=== PATIENT | female | born 1935 | race Caucasian/White ===

== ENCOUNTER 2021-06-22 09:58 | Emergency (ER) | payer MEDICARE, OTHER, SELFPAY ==
[2021-06-22] VITALS (7 sets, daily range): BP systolic 118–136; BP diastolic 84–107; PULSE 87–124; RESP 14–18; TEMP 36.9; O2SAT 92–98; BMI 28.3
--- NOTE | 2021-06-22 10:15 | ECG_ITS ---
[facility] Test Date: 2021-06-22 Pat Name: Francia Azevedo Department: Room: Gender: Female Pumper Hand: : 1935 Requested By: Meseret Hussein Order Number: [id number] Samantha MD: Shilo Solis M.D. 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 [id number] vick
--- NOTE | 2021-06-22 10:15 | CT_ITS ---
WS: [id number] CT HEAD NONCONTRAST HISTORY: unable to walk TECHNIQUE: Contiguous axial imaging performed through the brain in 2.5 mm imaging. Bone and soft tiss ue windows. Sagittal and coronal reformats reviewed. All CT scans at [facility] use at ast one of these dose optimization techniques: automated exposure control; mA and/or kV adjustment pe r patient size (includes targeted exams where dose is matched to clinical indication); or iterative r econstruction. DLP: 764.06 mGy.cm COMPARISON: 05/08/2008 No acute intracranial hemorrhage, midline shift or mass effect. Moderate atrophy with severe chronic microvascular type ischemic changes in the white matter. Signifi cant progression of chronic ischemic disease since 2007. Ventricles: Mild dilatation of the ventricles and extra-axial spaces on the basis of central and per ipheral atrophy. Heavy calcification within the intracranial carotid arteries. Paranasal sinuses: As visualized are clear. Mastoid air cells: Well pneumatized. Calvarium and scalp: Skull is intact with no soft tissue edema or swelling. CT/CT head wo con* [id number] IMPRESSION: 1. No acute intracranial hemorrhage or edema. 2. Moderate progression of atrophy and chronic microvascular ischemic disease since 2007. No acute area of sulcal effacement.
--- NOTE | 2021-06-22 13:14 | PC.NURSE ---
PT ARRIVED TO ROOM; ASSUMED CARE AT 1314
--- NOTE | 2021-06-22 13:24 | W.ED.GENADLT ---
HPI - General Adult General: Chief complaint: ER Hold Stated complaint: UNABLE TO WALK Time Seen by Provider: 06/22/21 13:14 History of Present Illness: HPI narrative: 85yoF female with history of atrial fibrillation on anticoagulation, CHF, hypertension, diabetes who presents the emergency room with complaints of generalized weakness and fatigue with exertion x 2 days. Patient attempted to get up this morning however felt very lightheaded. Patient noticed that her legs are also swollen. Patient denies any chest pain, focal weakness, diplopia, slurring of speech, or any extremity weakness. Patient lives at home by herself and has her daughter visit her every other day. Onset:2 days Duration:ongoing Location:home Severity:moderate Review of Systems Narrative: Constitutional: No fever, no chills. +fatigue/generalized weakness HEENT: No vision changes CV: No chest pain, no palpitations PULM: no cough, +dyspnea. GI: No abdominal pain, no N/V/D. : No dysuria MSKEL: No muscle pain SKIN: +leg swelling NEURO: No headache, no focal weakness. HEME: No visible bruises PSYCH: Normal mood PFSH ED PFSH: Medical History Atrial fibrillation CAD (coronary artery disease) CHF (congestive heart failure), NYHA class III HTN (hypertension) Hypothyroidism Surgical History History of coronary artery stent placement Hx of hysterectomy 1993 Family History Grandmother Stroke Father Cancer Other CHF (congestive heart failure) Denies family history of Diabetes Social History Smoking and tobacco status: never smoked Alcohol intake: never Physical Exam Narrative: EXAM NARRATIVE: Head: Atraumatic Eyes: PERRL, conjunctiva without injection ENT: Mucous membrane moist NECK: Supple, ROM intact LUNGS: Coarse breath sounds throughout CV: Regular tachycardia ABDOMEN: Soft, nontender in all quadrants EXTREMITY: Normal ROM, 2+ pitting edema up to the knees SKIN:+bumps over the anterior shins b/l NEURO: Awake and alert, no focal motor deficits PSYCH: Normal mood and affect Course Vital Signs: Vital signs: Vital Signs Temperature 98.5 F 06/22/21 10:11 Pulse Rate 88 06/22/21 23:56 Respiratory Rate 18 06/22/21 23:56 Blood Pressure 120/85 06/22/21 23:00 Pulse Oximetry 94 06/22/21 23:56 MDM - General Adult MDM Narrative: Medical decision making narrative: Patient an 85-year-old female with history of atrial fibrillation on Eliquis, CHF, hypertension, diabetes who presents the emergency room with generalized weakness x2 days. Patient is unable to stand up due to fatigue and increased lightheadedness. On lab evaluation, patient is found to have a creatinine of 2.4 with unknown baseline. Patient also has a proBNP of 15,000, troponin 52, D-dimer of 1.9. Patient is currently on anticoagulation. Decision was made to defer CTA study at this time to elevated creatinine. At this time, I am unable to assess and if there is any vascular occlusion that could include neurogenic syncope. Patient received aspirin. EKG showing Afib at WO=137. Normal axis. No ST elevations/depressions to suggest coronary occlusion. Normal QRS, QT intervals. Given metoprolol 5mg, 500 cc of fluids for afib with RVR. We will plan on fluid restricting given generalized picture of CHF. UA positive for nitrate and bacteria. Will cover with ceftriaxone. Disposition: Admission Lab Data: Labs: Lab Results 06/22/21 06/22/21 06/22/21 Range/Units 14:12 14:12 14:12 WBC 6.0 (4.0-10.0) 10^3/ uL RBC 5.12 (4.1-5.3) 10^6/u L Hgb 15.7 H (11.5-15.3) g/dL Hct 49.4 H (37.0-47.0) % MCV 96.5 (81-99) fl MCH 30.7 (28.0-34.0) pg MCHC 31.8 (30.0-36.0) g/dL RDW 14.9 (12.1-15.1) % Plt Count 176 (130-400) 10^3/c mm MPV 11.4 H (7.4-10.4) fL Neut % (Auto) 54.6 % Lymph % (Auto) 24.9 % [place] % (Auto) 15.1 % Eos % (Auto) 3.6 % Baso % (Auto) 1.3 % Neut # (Auto) 3.29 (1.8-7.7) 10^3/u L Lymph # (Auto) 1.5 (0.8-4.8) 10^3/u L [place] # (Auto) 0.9 (0.2-0.9) 10^3/u L Eos # (Auto) 0.2 (0.0-0.8) 10^3/u L Baso # (Auto) 0.1 (0.0-0.1) 10^3/u L Nucleated RBC % (a uto) 0 % Nucleated RBCs # 0.0 /100WBC D-Dimer (0-0.59) ug/mIFE U Sodium 140 (136-145) mmol/L Potassium 4.3 (3.5-5.1) mmol/L Chloride 99 (98-107) mmol/L Carbon Dioxide 29 (22-29) mmol/L Anion Gap 16.3 (5-19) BUN 51 H (8-23) mg/dL Creatinine 2.4 H (0.5-0.9) mg/dL GFR Calculation Not Reportable Glucose 146 H (65-115) mg/dL Calculated Osmolal ity 306 H (285-295) mOsm/k g Calcium 9.5 (8.5-10.5) mg/dL Troponin T Gen 5 n g/L 52 H (0-10) ng/L C-Reactive Protein (0.0-4.9) mg/L NT-Pro-B Natriuret Pep (0-450) pg/mL Procalcitonin (0-0.5) ng/mL Urine Color (Yellow) Urine Appearance (CLEAR) Urine pH (5-7) Ur Specific Gravit y (1.005-1.030) Urine Protein (Negative) Urine Glucose (UA) (Normal) Urine Ketones (Negative) Urine Blood (Negative) Urine Nitrate (Negative) Urine Bilirubin (Negative) Prot Sulfosalicyli c Acd (Negative) Urine Urobilinogen (Negative) mg/dL Ur Leukocyte Mary ase (Negative) Urine RBC (0-2) /hpf Urine WBC (0-5) /hpf Ur Squamous Epith Cells (0-5) /hpf Ur Transition Epit h Cell /hpf Amorphous Sediment /hpf Urine Bacteria (NONE) /hpf 06/22/21 06/22/21 06/22/21 Range/Units 14:12 14:12 14:20 WBC (4.0-10.0) 10^3/ uL RBC (4.1-5.3) 10^6/u L Hgb (11.5-15.3) g/dL Hct (37.0-47.0) % MCV (81-99) fl MCH (28.0-34.0) pg MCHC (30.0-36.0) g/dL RDW (12.1-15.1) % Plt Count (130-400) 10^3/c mm MPV (7.4-10.4) fL Neut % (Auto) % Lymph % (Auto) % [place] % (Auto) % Eos % (Auto) % Baso % (Auto) % Neut # (Auto) (1.8-7.7) 10^3/u L Lymph # (Auto) (0.8-4.8) 10^3/u L [place] # (Auto) (0.2-0.9) 10^3/u L Eos # (Auto) (0.0-0.8) 10^3/u L Baso # (Auto) (0.0-0.1) 10^3/u L Nucleated RBC % (a uto) % Nucleated RBCs # /100WBC D-Dimer 1.99 H (0-0.59) ug/mIFE U Sodium (136-145) mmol/L Potassium (3.5-5.1) mmol/L Chloride (98-107) mmol/L Carbon Dioxide (22-29) mmol/L Anion Gap (5-19) BUN (8-23) mg/dL Creatinine (0.5-0.9) mg/dL GFR Calculation Glucose (65-115) mg/dL Calculated Osmolal ity (285-295) mOsm/k g Calcium (8.5-10.5) mg/dL Troponin T Gen 5 n g/L (0-10) ng/L C-Reactive Protein 2.1 (0.0-4.9) mg/L NT-Pro-B Natriuret Pep 71581 H (0-450) pg/mL Procalcitonin 0.09 (0-0.5) ng/mL Urine Color (Yellow) Urine Appearance (CLEAR) Urine pH (5-7) Ur Specific Gravit y (1.005-1.030) Urine Protein (Negative) Urine Glucose (UA) (Normal) Urine Ketones (Negative) Urine Blood (Negative) Urine Nitrate (Negative) Urine Bilirubin (Negative) Prot Sulfosalicyli c Acd (Negative) Urine Urobilinogen (Negative) mg/dL Ur Leukocyte Mary ase (Negative) Urine RBC (0-2) /hpf Urine WBC (0-5) /hpf Ur Squamous Epith Cells (0-5) /hpf Ur Transition Epit h Cell /hpf Amorphous Sediment /hpf Urine Bacteria (NONE) /hpf 06/22/21 Range/Units 14:51 WBC (4.0-10.0) 10^3/ uL RBC (4.1-5.3) 10^6/u L Hgb (11.5-15.3) g/dL Hct (37.0-47.0) % MCV (81-99) fl MCH (28.0-34.0) pg MCHC (30.0-36.0) g/dL RDW (12.1-15.1) % Plt Count (130-400) 10^3/c mm MPV (7.4-10.4) fL Neut % (Auto) % Lymph % (Auto) % [place] % (Auto) % Eos % (Auto) % Baso % (Auto) % Neut # (Auto) (1.8-7.7) 10^3/u L Lymph # (Auto) (0.8-4.8) 10^3/u L [place] # (Auto) (0.2-0.9) 10^3/u L Eos # (Auto) (0.0-0.8) 10^3/u L Baso # (Auto) (0.0-0.1) 10^3/u L Nucleated RBC % (a uto) % Nucleated RBCs # /100WBC D-Dimer (0-0.59) ug/mIFE U Sodium (136-145) mmol/L Potassium (3.5-5.1) mmol/L Chloride (98-107) mmol/L Carbon Dioxide (22-29) mmol/L Anion Gap (5-19) BUN (8-23) mg/dL Creatinine (0.5-0.9) mg/dL GFR Calculation Glucose (65-115) mg/dL Calculated Osmolal ity (285-295) mOsm/k g Calcium (8.5-10.5) mg/dL Troponin T Gen 5 n g/L (0-10) ng/L C-Reactive Protein (0.0-4.9) mg/L NT-Pro-B Natriuret Pep (0-450) pg/mL Procalcitonin (0-0.5) ng/mL Urine Color Yellow (Yellow) Urine Appearance Hazy A (CLEAR) Urine pH 8 H (5-7) Ur Specific Gravit y 1.005 (1.005-1.030) Urine Protein Trace (Negative) Urine Glucose (UA) Norm (Normal) Urine Ketones Negative (Negative) Urine Blood 3+ H (Negative) Urine Nitrate Positive H (Negative) Urine Bilirubin Neg (Negative) Prot Sulfosalicyli c Acd Positive (Negative) Urine Urobilinogen Norm (Negative) mg/dL Ur Leukocyte Mary ase 1+ H (Negative) Urine RBC 0-4 H (0-2) /hpf Urine WBC 5-10 H (0-5) /hpf Ur Squamous Epith Cells 5-10 H (0-5) /hpf Ur Transition Epit h Cell 0-4 /hpf Amorphous Sediment 1+ /hpf Urine Bacteria 4+ H (NONE) /hpf Imaging Data^: Other Imaging: Radiologist's impression: [address] [id number] ReportSigned Patient: Akanksha Azevedo #: [id number]: 5Acct#:[id number]/Sex: 85 / FADM Date: 06/22/21Loc: ERRoom/Bed:Attending Dr: Ordering Provider/Ordering MD: Meseret Hussein MD Date of Service: 06/22/21 Procedure(s): XR chest 1V portable [id number] Accession Number(s): [id number] Report Number: [id number] WS: [id number] Exam: XR chest 1V portable [id number] Date/Time of Exam: 06/22/2021 1:27 PM Reason For Exam: dyspnea, fatigue Comparison 04/01/2014. The heart is enlarged. There are bibasal pleural effusions. No acute infiltrates are seen. No pneumothorax. The mediastinum and bony thorax are unremarkable. XR/XR chest 1V portable [id number] IMPRESSION: 1. Cardiac enlargement with bibasal pleural effusions which most likely indicate some degree of congestive heart failure. Dictated By:Fryeigned By:Jeffery Rothman Date/Time:06/22/21 1431DD/ 1429 Discharge Plan Discharge Patient Disposition: Admitted As Inpatient Admit Provider: Sorin Higuera Clinical Impression: CHF exacerbation, Generalized weakness, Acute UTI, Elevated troponin, Atrial fibrillation and flutter Condition: Stable Coding Level of Care Code ED Cw Operator for Jia Valentin
--- NOTE | 2021-06-22 13:27 | XR_ITS ---
WS: [id number] Exam: XR chest 1V portable [id number] Date/Time of Exam: 06/22/2021 1:27 PM Reason For Exam: dyspnea, fatigue Comparison 04/01/2014. The heart is enlarged. There are bibasal pleural effusions. No acute infiltrates are seen. No pneumot horax. The mediastinum and bony thorax are unremarkable. XR/XR chest 1V portable [id number] IMPRESSION: 1. Cardiac enlargement with bibasal pleural effusions which most likely indicat e some degree of congestive heart failure.
--- NOTE | 2021-06-22 14:12 | PC.PHAR ---
pt brought in medication list pt and pts daughter verified medications-rx filled on 05/28/21 for spironolactone 12.5mg po qam-another rx filled on 06/13/21 25mg bid pt states she is still taking 12.5mg daily-pt states she is still taking lasix 20mg qam ext med history shows last filled on 03/24/21 30d/s-pts daughter states the pt isnt taking omeprazole rx filled on 05/31/21 30d/s states the medication didnt work
[2021-06-22 14:29] LABS: Basophils # 0.1 10^3/uL (0.0-0.1); Basophils % 1.3 %; Eosinophils # 0.2 10^3/uL (0.0-0.8); Eosinophils % 3.6 %; Hematocrit 49.4 % (37.0-47.0); Hemoglobin 15.7 g/dL (11.5-15.3); Lymphocytes # 1.5 10^3/uL (0.8-4.8); Lymphocytes % 24.9 %; Mean Corpuscular HGB Conc 31.8 g/dL (30.0-36.0); Mean Corpuscular Hemoglobin 30.7 pg (28.0-34.0); Mean Corpuscular Volume 96.5 fl (81-99); Mean Platelet Volume 11.4 fL (7.4-10.4); Monocytes # 0.9 10^3/uL (0.2-0.9); Monocytes % 15.1 %; Neutrophils # 3.29 10^3/uL (1.8-7.7); Neutrophils % 54.6 %; Nucleated Red Blood Cells % 0 %; Platelet Count 176 10^3/cmm (130-400); Red Blood Count 5.12 10^6/uL (4.1-5.3); Red Cell Distribution Width 14.9 % (12.1-15.1)
[2021-06-22 14:44] LABS: D Dimer 1.99 ug/mIFEU (0-0.59)
[2021-06-22] MEDS: metoprolol tartrate 1 mg/1 mL SDV 5 mL 5 MG IVP ×2 (14:52→16:42)
[2021-06-22 14:55] LABS: Blood Urea Nitrogen 51 mg/dL (8-23); Calcium 9.5 mg/dL (8.5-10.5); Carbon Dioxide 29 mmol/L (22-29); Chloride 99 mmol/L (98-107); Glucose 146 mg/dL (65-115); Osmolality Calculated 306 mOsm/kg (285-295); Sodium 140 mmol/L (136-145)
[2021-06-22 14:57] LABS: Troponin T (5th) Once 52 ng/L (0-10)
[2021-06-22 15:00] LABS: Anion Gap 16.3 (5-19); Potassium 4.3 mmol/L (3.5-5.1)
[2021-06-22 15:01] LABS: NT Pro B Type Natriuretic Pept 18467 pg/mL (0-450)
[2021-06-22 15:23] LABS: Bilirubin Urine Neg (Negative); Blood Urine 3+ (Negative); Glucose Urine UA Norm (Normal); Ketones Urine Negative (Negative); Nitrate Urine Positive (Negative); Protein Urine Trace (Negative); Specific Gravity, Urine 1.005 (1.005-1.030); Urine Appearance Hazy (CLEAR); Urine Color Yellow (Yellow); pH Urine 8 (5-7)
[2021-06-22 15:24] LABS: Add Urine Culture? Yes; Add Urine Microscopic? YES; Amorphous Sediment Urine 1+ /hpf; Bacteria Urine 4+ /hpf; Leukocyte Esterase Urine 1+ (Negative); RBC Urine 0-4 /hpf (0-2); Sulfosalicylic Acid Urine Positive (Negative); Transitional Epi Cells Urine 0-4 /hpf; Urobilinogen Urine Norm (Negative)
--- NOTE | 2021-06-22 15:28 | ECG_ITS ---
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 Measurements Intervals [place] Rate: 114 P: VT: QRS: 52 QRSD: 95 T: 0 QT: 331 QTc: 458 Interpretive Statements ATRIAL FIBRILLATION WITH RAPID VENTRICULAR RESPONSE LOW QRS VOLTAGE [QRS DEFLECTION < 0.5/1.0 mV IN LIMB/CHEST LEADS] POSSIBLE ANTERIOR MYOCARDIAL INFARCTION , PROBABLY OLD [30 ms Q WAVE IN V3/V4, OR R < 0.2 mV IN V4]javascript:perform('study_confirm'); Compared to ECG 06/22/2021 12:13:21 Sinus tachycardia no longer present First degree AV block no longer present Myocardial infarct finding still present Electronically Signed On 06-22-2021 18:03:16 CDT by Shilo Solis M.D. [id number]
--- NOTE | 2021-06-22 16:14 | PM.HP ---
Providers/Chief Complaint Primary Care Provider: Alonzo Serrano MD Chief Complaint: UNABLE TO WALK History of Present Illness Francia Azevedo is a 85 year old female who presented today with chief complaint of not been able to walk properly. Patient is stating that she lives alone she does carry history of preserved ejection fraction heart failure, she has not been vaccinated for COVID-19, there are family members who were tested positive for COVID-19 last few months and she thinks she had been exposed as well. She is denying fever, chest pain, shortness of breath, diarrhea. She is endorsing bilateral lower extremity swelling, weight gain, because of her swelling she has not been able to walk properly and that is why she was sent to the hospital. She uses walker for ambulation. She is compliant with her medications. Diagnosis in the ER revealed CHF exacerbation, JENNA, Covid PCR sent, we do not have rapid antigen swabs anymore, she is not requiring oxygen she is saturating well on room air, she was given full dose aspirin, ceftriaxone, metoprolol tartrate 50 mg p.o. for A. fib RVR current heart rate was fluctuating between 100-1 10, she was also given 10 mg of metoprolol IV push, abnormal UA but no signs of UTI Review of Systems Const: Reports: chills Eyes: Denies: change in vision ENMT: Denies: throat pain Card: Denies: chest pain Resp: Denies: dyspnea GI: Denies: abdominal pain : Denies: flank pain Musc: Denies: neck pain Skin/Breast: Reports: new lesions and lesions Neuro: Reports: weakness in extremities and difficulty walking; Denies: headache(s) Psych: Denies: anxiety Endo: Denies: polyuria Nitish/Lymph: Denies: easy bruising All/Imm: Denies: urticaria Medications/Allergies Home Medications Medication Instructions Recorded Confirmed Last Taken Type aspirin 81 mg tablet,delayed 81 mg PO QPM 04/18/21 06/22/21 06/21/21 History release calcium citrate 200 mg 1 tab PO BEDTIME 04/18/21 06/22/21 06/21/21 History calcium-vitamin D3 6.25 mcg (250 unit) tablet cholecalciferol (vitamin D3) 25 25 mcg PO BEDTIME 04/18/21 06/22/21 06/21/21 History mcg (1,000 unit) capsule furosemide 40 mg tablet 20 mg PO QAM 04/18/21 06/22/21 06/22/21 07:00 History gabapentin 300 mg capsule 300 mg PO QPM 04/18/21 06/22/21 06/21/21 History hydrocodone 10 mg-acetaminophen 1 tab PO Q8H PRN 04/18/21 06/22/21 06/22/21 07:00 History 325 mg tablet metoprolol succinate 100 mg 100 mg PO QAM 04/18/21 06/22/21 06/22/21 07:00 History tablet,extended release 24 hr nitroglycerin 0.4 mg sublingual 0.4 mg SUBLINGUAL Q5M PRN 04/18/21 06/22/21 Unknown History tablet simvastatin 40 mg tablet 40 mg PO BEDTIME 04/18/21 06/22/21 06/21/21 History spironolactone 25 mg tablet 12.5 mg PO QAM 04/18/21 06/22/21 06/22/21 07:00 History valsartan 320 mg tablet 320 mg PO QAM 04/18/21 06/22/21 06/22/21 07:00 History apixaban [Eliquis] 2.5 mg PO BID 06/22/21 06/22/21 06/22/21 07:00 History levothyroxine [Synthroid] 88 mcg PO QAM 06/22/21 06/22/21 06/22/21 07:00 History Allergies Allergy/AdvReac Type Severity Reaction Status Date / Time ciprofloxacin [From Cipro] Allergy Unknown Verified 06/22/21 14:12 diltiazem Allergy ALGY-Rash Verified 06/22/21 14:12 sulfamethoxazole Allergy Unknown Verified 06/22/21 14:12 [From Bactrim] trimethoprim [From Bactrim] Allergy Unknown Verified 06/22/21 14:12 PFSH Acute PFSH: Medical History Atrial fibrillation CAD (coronary artery disease) CHF (congestive heart failure), NYHA class III HTN (hypertension) Hypothyroidism Surgical History History of coronary artery stent placement Hx of hysterectomy 1994 Family History Grandmother Stroke Father Cancer Other CHF (congestive heart failure) Denies family history of Diabetes Social History Smoking and tobacco status: never smoked Alcohol intake: never Vitals/I&O/Wt Last Vital Signs Temp 98.5 F 06/22/21 10:11 Pulse 89 06/22/21 15:16 Resp 15 06/22/21 15:16 BP 118/98 06/22/21 15:16 Pulse Ox 96 06/22/21 15:16 Weight last 48 hrs Weight 63.503 kg Physical Exam Narrative: EXAM NARRATIVE: Very pleasant cooperative Sudanese female S1-S2 with signs of CHF exacerbation Bilateral lower extremity edema extending up to her thighs Cellulitis with pustules left leg EOMI, PERRLA Bilateral breast without active wheezing or crackles Saturating well on room air Appropriate mood and affect Abdomen soft nontender bowel sounds present No joint swelling No neurological deficit Data : 06/22/21 14:12 06/22/21 14:12 A&P Assessment and plan (1) CHF exacerbation: Status: Acute (2) Generalized weakness: Status: Acute (3) Elevated troponin: Status: Acute (4) Atrial fibrillation and flutter: Status: Acute (5) CHF (congestive heart failure), NYHA class III: Status: Acute Qualifiers: Congestive heart failure type: unspecified Qualified Code(s): I50.9 - Heart failure, unspecified (6) JENNA (acute kidney injury): Status: Acute Additional A&P Information Acute preserved ejection fraction exacerbation of heart failure No active murmur, no active chest pain First troponin 52, getting serial troponin EKG, EKG without specific ischemic or infarctive changes I would use Bumex IV and stop her p.o. Lasix for now Most likely etiology is tachyarrhythmia A. fib with acute RVR Required metoprolol IV push currently heart rate 100 110 Can use Cardizem drip if heart rates stays above 110 She is hypertensive Generalized weakness and leg swelling She was not able to walk because of bilateral lower extremity swelling I will request PT evaluation, She does not have active neurological deficits or strokelike findings Left leg cellulitis Does not have any purulent drainage I would use ceftriaxone for now for strep coverage She was given ceftriaxone in the ER for concern of UTI however she is denying any symptoms Acute on chronic kidney disease Cardiorenal anticipating improvement with diuresis No active signs of UTI Plan discussed with the daughter, also discussed goals of care, she is DNR/DNI Cardiac diet DVT prophylaxis not indicated at home she takes Eliquis 2.5 mg twice a day which I would continue Covid PCR sent Attestations Medical Necessity Statement*: Anticipating stay in the hospital across more more than 2 midnights Time Spent in Patient Care: Greater than 35 minutes Coding Level of Care Code Acute School Caf[employer] Cook for g Fwd Diagnoses CHF exacerbation I50.9 Generalized weakness R53.1 Elevated troponin R77.8 Atrial fibrillation and flutter I48.91; I48.92 CHF (congestive heart failure), NYHA class III I50.9 Congestive heart failure type: unspecified JENNA (acute kidney injury) N17.9
[2021-06-22] MEDS: cefTRIAXone 1,000 MG in lidocaine 1% 2.1 ML 2.1 MG IM (16:29)
[2021-06-22] MEDS: aspirin 325 mg Tablet PO (16:29)
[2021-06-22] MEDS: metoprolol tartrate 50 mg Tablet PO (16:42)
[2021-06-22 16:55] LABS: C Reactive Protein 2.1 mg/L (0.0-4.9)
[2021-06-22 17:02] LABS: Procalcitonin 0.09 ng/mL (0-0.5)
--- NOTE | 2021-06-22 17:28 | USR_ITS ---
PROCEDURE INFORMATION: Exam: US Duplex Lower Extremity Veins, Bilateral Exam date and time: 06/22/2021 5:28 PM Age: 85 years old Clinical indication: Pain; Leg, upper; Bilateral; Additional info: High d-dimer, leg swelling TECHNIQUE: Imaging protocol: Real-time duplex ultrasound of the extremities with 2-D stephenson scale, color Doppler flow and spectral waveform analysis with image documentation. Complete exam focused on the bilateral lower extremity veins. COMPARISON: No relevant prior studies available. FINDINGS: Right deep veins: Unremarkable. The common femoral, femoral, proximal profunda femoral and popliteal veins are patent without thrombus. Normal Doppler waveforms. Normal compressibility and/or augmentation response. Right superficial veins: Saphenofemoral junction is patent without thrombus. Left deep veins: Unremarkable. The common femoral, femoral, proximal profunda femoral and popliteal veins are patent without thrombus. Normal Doppler waveforms. Normal compressibility and/or augmentation response. Left superficial veins: Saphenofemoral junction is patent without thrombus. Soft tissues: Moderate subcutaneous edema in the lower extremities. US/CV venous duplex [facility] [id number] IMPRESSION: 1. Negative for deep venous thrombosis. 2. Moderate subcutaneous edema in the lower extremities.
[2021-06-22 17:35] LABS: Troponin 5 2HR 46.65 ng/L (0-10)
[2021-06-22 17:39] LABS: Troponin 5 2HR Delta -5.35 ABS# (0-10)
[2021-06-22] MEDS: apixaban 5 mg Tablet 2.5 MG PO (18:12)
--- NOTE | 2021-06-22 21:00 | PC.NURSE ---
linen wet with urine. pericare, new diaper, new linen, extra blankets and settled in to sleep
[2021-06-22 21:06] LABS: Troponin 5 6HR 48.13 ng/L (0-10)
[2021-06-22] MEDS: cholecalciferol (vitamin D3) 1,000 unit Tablet 1000 UNIT PO (23:21)
[2021-06-23 04:32] LABS: Basophils # 0.1 10^3/uL (0.0-0.1); Eosinophils # 0.4 10^3/uL (0.0-0.8); Eosinophils % 6.4 %; Hematocrit 42.7 % (37.0-47.0); Hemoglobin 13.5 g/dL (11.5-15.3); Lymphocytes # 1.4 10^3/uL (0.8-4.8); Lymphocytes % 24.7 %; Mean Corpuscular HGB Conc 31.6 g/dL (30.0-36.0); Mean Corpuscular Hemoglobin 30.5 pg (28.0-34.0); Mean Corpuscular Volume 96.6 fl (81-99); Mean Platelet Volume 11.2 fL (7.4-10.4); Monocytes # 0.7 10^3/uL (0.2-0.9); Monocytes % 12.7 %; Neutrophils # 3.15 10^3/uL (1.8-7.7); Neutrophils % 54.9 %; Nucleated Red Blood Cells % 0 %; Platelet Count 152 10^3/cmm (130-400); Red Blood Count 4.42 10^6/uL (4.1-5.3); Red Cell Distribution Width 15.1 % (12.1-15.1); White Blood Count 5.8 10^3/uL (4.0-10.0)
[2021-06-23 05:27] LABS: Blood Urea Nitrogen 47 mg/dL (8-23); Calcium 8.8 mg/dL (8.5-10.5); Carbon Dioxide 27 mmol/L (22-29); Chloride 100 mmol/L (98-107); Glucose 110 mg/dL (65-115); Osmolality Calculated 299 mOsm/kg (285-295); Sodium 138 mmol/L (136-145)
[2021-06-23 05:46] LABS: Anion Gap 15.2 (5-19); Potassium 4.2 mmol/L (3.5-5.1)
[2021-06-23] MEDS: metoprolol succinate ER (24 HR) 100 mg Tablet PO (05:50)
[2021-06-23] MEDS: levothyroxine 88 mcg Tablet PO (05:50)
[2021-06-23] MEDS: dexamethasone 4 mg Tablet 6 MG PO (10:49)
[2021-06-23] MEDS: apixaban 5 mg Tablet 2.5 MG PO (10:50)
[2021-06-23] MEDS: bumetanide 1 mg Tablet PO (10:53)
[2021-06-23 13:13] VITALS: PULSE 113; RESP 18; O2SAT 94
--- NOTE | 2021-06-23 13:47 | PM.PN ---
Subjective Subjective: Interval history: Patient was seen and examined in the ER, patient was endorsing feeling the same however her leg swelling has not improved, she was saturating well on room air she had 1 big bowel movement in the ER not noting chest pain or shortness of breath, she has stayed afebrile Vitals/I&O/Wt Last Vital Signs Temp 98.5 F 06/22/21 10:11 Pulse 113 H 06/23/21 13:13 Resp 18 06/23/21 13:13 BP 120/85 06/22/21 23:00 Pulse Ox 94 06/23/21 13:13 06/22/21 06/23/21 06/23/21 22:59 06:59 14:59 Intake Total 2.1 / 2.1 Balance 2.1 / 2.1 Weight last 48 hrs Weight 63.503 kg Physical Exam Narrative: EXAM NARRATIVE: Very pleasant cooperative female S1, S2 no murmur Clinically mild signs of CHF exacerbation with bilateral lower extremity edema Left leg cellulitis no acute worsening No vascular compromise Appropriate mood and affect EOMI, PERRLA no neurological deficits No audible stridor or wheezing No crackles or wheezing Data : 06/23/21 04:12 06/23/21 04:12 Micro: Microbiology 06/22/21 14:51 Urine Culture - Preliminary Urine,Clean Catch Gram Negative Rods A&P Assessment and plan (1) CHF exacerbation: Status: Acute (2) JENNA (acute kidney injury): Status: Acute (3) Generalized weakness: Status: Acute (4) Atrial fibrillation and flutter: Status: Acute (5) Hypothyroidism: Status: Acute (6) Cellulitis: Status: Acute Additional A&P Information Acute CHF exacerbation I would increase her Bumex dose to 2 mg daily Saturating well on room air Waiting on echo today Negative delta troponin EKG without ischemic or infarctive changes Acute kidney injury secondary to cardiorenal: Improved with diuresis Generalized weakness Rule out Covid, appears secondary to CHF exacerbation A. fib without RVR: Heart rate improved Continue Eliquis Cellulitis: She is currently being treated with ceftriaxone for nonpurulent left leg cellulitis, will be switched to doxycycline DNR/DNI Cardiac diet DVT prophylaxis currently on Eliquis Attestations Medical Necessity Statement*: Anticipating discharge after her Covid results Time Spent in Patient Care: less than 15 minutes Coding Level of Care Code Acute Broadcast Traffic Coordinator for Chg Fwd Diagnoses CHF exacerbation I50.9 JENNA (acute kidney injury) N17.9 Generalized weakness R53.1 Atrial fibrillation and flutter I48.91; I48.92 Hypothyroidism E03.9 Cellulitis L03.90
[2021-06-23 14:28] VITALS: BP 131/86; PULSE 113; RESP 18; O2SAT 98
--- NOTE | 2021-06-23 14:47 | PC.NURSE ---
pt decided she did not want to admitted, left AMA
[2021-06-23 22:28] LABS: Quest SARS-CoV-2 RNA NOT DETECTED (NOT DETECTED)
--- NOTE | 2021-06-25 08:12 | PC.NURSE ---
Patient contacted, notified of negative COVID test results.
== END 2021-06-23 14:47 | disposition left against medical advice (07) ==
LOC: ER 17:47 → ER IP 06-23 05:48
PROVIDERS: Emergency Provider Emergency Medicine; PCP Family Medicine; Visit Provider Internal Medicine
DX: N39.0 Urinary tract infection, site not specified (principal); I11.0 Hypertensive heart disease with heart failure; I50.9 Heart failure, unspecified; I48.91 Unspecified atrial fibrillation; I48.92 Unspecified atrial flutter; M79.605 Pain in left leg; M79.604 Pain in right leg; R77.8 Other specified abnormalities of plasma proteins; E03.9 Hypothyroidism, unspecified; E11.9 Type 2 diabetes mellitus without complications; I25.10 Atherosclerotic heart disease of native coronary artery without angina pectoris; Z79.01 Long term (current) use of anticoagulants; Z95.5 Presence of coronary angioplasty implant and graft
CPT/HCPCS: 36415; 70450; 71045; 80048; 81001; 83880; 84145; 84484; 85025; 85378; 86140; 87077; 87086; 87186; 87635; 93005; 93970; 96372; 99284; J0696; J3490; J8540

== ENCOUNTER 2021-07-26 14:40 | Inpatient (IN) | payer MEDICARE, OTHER, SELFPAY ==
[2021-07-26] VITALS (7 sets, daily range): BP systolic 114–158; BP diastolic 76–99; PULSE 93–131; RESP 16–22; TEMP 36.4–37.1; O2SAT 92–99; BMI 23.8; BMI 19.7
--- NOTE | 2021-07-26 15:33 | XR_ITS ---
WS: [id number] Exam: XR chest 1V portable [id number] Date/Time of Exam: 07/26/2021 3:33 PM Reason For Exam: AMS Comparison 06/22/2021. There is cardiac enlargement with bibasal pleural effusions. There is mild pulmonary vascular congest ion. The lungs are fully inflated. The mediastinum is not widened. Bony structures are intact. XR/XR chest 1V portable [id number] IMPRESSION: 1. Cardiac enlargement with increased pulmonary vascularity and bibasal pleural effusions suggesting CHF.
--- NOTE | 2021-07-26 15:33 | CTR_ITS ---
PROCEDURE INFORMATION: Exam: CT Head Without Contrast Exam date and time: 07/26/2021 3:33 PM Age: 85 years old Clinical indication: Altered mental status/memory loss; Additional info: AMS TECHNIQUE: Imaging protocol: Computed tomography of the head without contrast. Radiation optimization: All CT scans at this facility use at least one of these dose optimization techniques: automated exposure control; mA and/or kV adjustment per patient size (includes targeted exams where dose is matched to clinical indication); or iterative reconstruction. COMPARISON: CT head wo con* [id number] 06/22/2021 12:19 PM RADIATION DOSE METRICS: Total DLP (mGy-cm): 1493.16 FINDINGS: Brain: Please note there is extensive streak artifact at the base of the skull which limits fine parenchymal evaluation in this region. No evidence of intracranial hemorrhage. Moderate diffuse cerebral atrophy and sequela of chronic small vessel ischemic disease. Cerebral ventricles: No ventriculomegaly. Paranasal sinuses: Visualized sinuses are unremarkable. No fluid levels. Mastoid air cells: Visualized mastoid air cells are well aerated. Bones/joints: Unremarkable. No acute fracture. Soft tissues: Unremarkable. CT/CT head wo con* [id number] IMPRESSION: 1. No acute intracranial abnormality. 2. Moderate diffuse cerebral atrophy and sequela of chronic small vessel ischemic disease. Radiation Dose CTDIVOL = (mGy): DLP = 1493.16 (mGy-cm)
--- NOTE | 2021-07-26 15:35 | ECG_ITS ---
[facility] Test Date: 2021-07-26 Pat Name: Francia Azevedo Department: Room: Gender: Female Hvac Technician Residential: : 1935 Requested By: Demetrio Quinonez Order Number: [id number] Samantha MD: Brie Quinteros M.D. Measurements Intervals Douglas Rate: P: GA: QRS: QRSD: T: QT: QTc: Interpretive Statements NO FURTHER INTERPRETATION POSSIBLE ATYPICAL ECG WARNING: DATA QUALITY MAY AFFECT INTERPRETATION Compared to ECG 06/22/2021 15:09:32 Atrial fibrillation no longer present Myocardial infarct finding no longer present Electronically Signed On 07-27-2021 6:57:50 CDT by Brie Quinteros M.D. [email or web address]
--- NOTE | 2021-07-26 15:36 | ED_ITS ---
HPI - Altered Mental Status General: Chief Complaint: Altered Mental Status Stated Complaint: HTN, BLE EDEMA; DELIRIUM, AFIB Time Seen by Provider: 07/26/21 15:32 History of Present Illness: HPI narrative: Patient is a 5-year-old female with past medical history of JENNA CHF A. fib congestive heart failure class III hypothyroidism hypertension cardiac artery disease. She is here accompanied by her daughter who is her primary decating machine operator. States for the last 3 weeks she has had increasing decrease in mental status and sharpness decrease in appetite and increased leg swelling. She was hospitalized at the end of May for JENNA and leg swelling as well. She had been able to do her ADLs until about 3 weeks ago. Was seen by her primary care provider who suggested they come to the emergency department for evaluation. At her baseline she is talkative awake generally oriented. Denies any recent fevers chills chest pain nausea vomiting diarrhea altered mental status headache recent trauma or rash Review of Systems General: Reports: 10 or more systems reviewed and unremarkable except in HPI and below PFSH ED PFSH: Medical History Atrial fibrillation CAD (coronary artery disease) CHF (congestive heart failure), NYHA class III HTN (hypertension) Hypothyroidism Surgical History History of coronary artery stent placement Hx of hysterectomy 1993 Family History Grandmother Stroke Father Cancer Other CHF (congestive heart failure) Denies family history of Diabetes Social History Smoking and tobacco status: never smoked Alcohol intake: never Physical Exam Const: COMMON NORMALS: no acute distress, average body habitus and patient or iented x3 GENERAL APPEARANCE: cooperative, comfortable, well kempt, well developed and frail appearing; not in distress, not anxious, not combative, not disheveled, not lethargic, not ill appearing and does not appear older than stated age ORIENTATION/CONSCIOUSNESS: Yes awake, Yes oriented to person, Yes oriented to place and Yes oriented to time; not lethargic OTHER: Patient lying quietly with eyes closed will open them on command will answer questions on command is communicative with her daughter and myself but wants to fall asleep very quickly HENMT: COMMON NORMALS: normocephalic, atraumatic, hearing grossly normal bilaterally, external ears normal, EAC's normal, Normal external nose present, Normal nasal mucous membranes and turbinates present, moist oral mucous membranes, oropharynx normal, dentition normal and gingiva normal HEAD & SCALP: normocephalic and atraumatic NOSE: Normal external nose present and Normal nasal mucous membranes and turbinates present EXTERNAL EAR: Yes external ears normal EXTERNAL AUDITORY CANAL: EAC's normal Eye: COMMON NORMALS: Equal, round and reactive pupils present, EOMs intact bilaterally and conjunctivae normal CONJUNCTIVA: Yes conjunctivae normal PUPIL: Yes Equal, round and reactive pupils present Neck/C-Spine: COMMON NORMALS: no meningeal signs and no JVD Resp: COMMON NORMALS: normal respiratory effort and No use of accessory muscles Cardio: COMMON NORMALS: no JVD, regular rate, regular rhythm and No murmurs present (Cardio) RATE: regular rate RHYTHM: regular rhythm GI: COMMON NORMALS: Normal to inspection, nondistended, normoactive bowel sounds present, Soft to palpation and non-tender AUSCULTATION: Yes normoactive bowel sounds PALPATION: Yes Soft to palpation Neuro: VERA COMA SCALE: document GCS findings Buhler coma scale eye opening: To sound Vera coma scale verbal response: Orientated [place] coma scale motor response: Obey commands [place]ler coma scale total score: 14 COMMON NORMALS: patient oriented x3 and no focal motor deficits SENSORIUM/ORIENTATION: Yes oriented to person, Yes oriented to place, Yes oriented to time and No lethargic MENINGEAL SIGNS: Yes no meningeal signs CRANIAL NERVES: Yes CN normal except as noted COORDINATION/BALANCE: [id number] test normal SPEECH: speech normal GAIT: Yes Normal gait present and Yes Unable to assess gait COORDINATION: [id number] test normal Psych: COMMON NORMALS: mental status grossly normal and Normal thought process present APPEARANCE: Yes well kempt THOUGHT PROCESS: Normal thought process present THOUGHT CONTENT: Yes Normal thought content present Skin: COMMON NORMALS: no rashes or lesions noted GENERAL SKIN EXAM: no rashes or lesions noted Course ED course: Was able to get rate control with 10 of diltiazem. Patient tolerated that well and did not make her hypotensive. She does appear to have urinary tract infection. We will start her on some Rocephin given her her vital sign abnormalities would call the sepsis. She has had a lactate of 4.1 to give her another bolus. Will wait for the rest of her chemistry to come back and likely admit her to the hospitalist Patient did have a significant hypothyroidism. Is possible this may be myxedema although her bilateral lower extremity has been actually improving over the last few days. Discussed with hospitalist about admitting her and he agrees with admission Vital Signs: Vital signs: Vital Signs Temperature 97.6 F 07/26/21 16:41 Pulse Rate 93 07/26/21 16:41 Respiratory Rate 16 07/26/21 16:41 Blood Pressure 120/76 07/26/21 16:41 Pulse Oximetry 94 07/26/21 16:41 MDM - Altered Mental Status MDM Narrative: Medical decision making narrative: Patient is an 85-year-old female here with worsening mental acuity over the last 3 weeks we will do standard altered mental status work-up including CT labs EKG chest x-ray. Patient has tremor that was not able to be controlled in order to get a EKG on her. She is awake and oriented wants to go back to sleep very easily. I think this is more of a chronic issue on her it did have a conversation with her daughter about goals of care and she understand this may be an end-of-life issue however will look for any reversible causes. She has been in A. fib with RVR rates bouncing to the 120s and 140. Has been a little soft on her blood pressures to give her a small bolus get her up with a map above 70 we will give her a small diltiazem bolus and then started on a drip if we need to otherwise may have to consider magnesium which he may do anyway. It sounds like from the patient's daughter that the heart rate is been high for quite some time may be some malperfusion that is causing her mental status changes and also check for any signs of malperfusion for other organs Differential includes stroke, Alzheimer's, A. fib with RVR Lab Data: Labs: Lab Results 07/26/21 07/26/21 07/26/21 17:03 17:22 17:22 WBC 9.2 10^3/uL 10^3/ uL (4.0-10.0) RBC 5.21 10^6/uL 10^6 /uL (4.1-5.3) Hgb 16.4 g/dL H g/dL (11.5-15.3) Hct 51.1 % H % (37.0-47.0) MCV 98.1 fl fl (81-99) MCH 31.5 pg pg (28.0-34.0) MCHC 32.1 g/dL g/dL (30.0-36.0) RDW 18.3 % H % (12.1-15.1) Plt Count 147 10^3/cmm 10^3 /cmm (130-400) MPV 12.5 fL H fL (7.4-10.4) Neut % (Auto) 69.6 % % Lymph % (Auto) 16.0 % % [place] % (Auto) 13.6 % % Eos % (Auto) 0.0 % % Baso % (Auto) 0.4 % % Neut # (Auto) 6.38 10^3/uL 10^3 /uL (1.8-7.7) Lymph # (Auto) 1.5 10^3/uL 10^3/ uL (0.8-4.8) [place] # (Auto) 1.3 10^3/uL H 10^ 3/uL (0.2-0.9) Eos # (Auto) 0.0 10^3/uL 10^3/ uL (0.0-0.8) Baso # (Auto) 0.0 10^3/uL 10^3/ uL (0.0-0.1) Nucleated RBC % (a uto) 0 % % Nucleated RBCs # 0.0 /100WBC /100W BC Sodium 136 mmol/L mmol/L (136-145) Potassium 5.8 mmol/L H mmol /L (3.5-5.1) Chloride 95 mmol/L L mmol/ L (98-107) Carbon Dioxide 22 mmol/L mmol/L (22-29) Anion Gap 24.8 H (5-19) BUN 62 mg/dL H mg/dL (8-23) Creatinine 2.3 mg/dL H mg/dL (0.5-0.9) GFR Calculation Not Reportable Glucose 147 mg/dL H mg/dL (65-115) Calculated Osmolal ity 302 mOsm/kg H mOs m/kg (285-295) Lactate Calcium 9.2 mg/dL mg/dL (8.5-10.5) Magnesium 2.7 mg/dL H mg/dL (1.7-2.3) Total Bilirubin 1.6 mg/dL H mg/dL (0.15-1.2) AST 63 U/L H U/L (0-32) ALT 51 U/L H U/L (0-33) Alkaline Phosphata se 141 IU/L H IU/L (35-105) Troponin T Gen 5 n g/L Total Protein 6.3 g/dL L g/dL (6.6-8.7) Albumin 4.0 g/dL g/dL (3.5-5.2) Globulin 2.3 g/dL g/dL (1.3-4.6) TSH 54.80 uIU/mL H uI U/mL (0.27-4.20) Urine Color Yellow (Yellow) Urine Appearance Hazy A (CLEAR) Urine pH 7 (5-7) Ur Specific Gravit y 1.005 (1.005-1.030) Urine Protein Neg (Negative) Urine Glucose (UA) Norm (Normal) Urine Ketones Negative (Negative) Urine Blood 2+ H (Negative) Urine Nitrate Negative (Negative) Urine Bilirubin Neg (Negative) Urine Urobilinogen Norm mg/dL mg/dL (Negative) Ur Leukocyte Mary ase 2+ H (Negative) Urine RBC 0-4 /hpf H /hpf (0-2) Urine WBC 25-40 /hpf H /hpf (0-5) Ur Squamous Epith Cells 5-10 /hpf H /hpf (0-5) Ur Transition Epit h Cell 0-4 /hpf /hpf Amorphous Sediment Not Reportable Urine Bacteria 2+ /hpf H /hpf (NONE) Hyaline Casts 5-10 /lpf H /lpf Urine Mucus 2+ /hpf /hpf 07/26/21 07/26/21 17:22 17:22 WBC RBC Hgb Hct MCV MCH MCHC RDW Plt Count MPV Neut % (Auto) Lymph % (Auto) [place] % (Auto) Eos % (Auto) Baso % (Auto) Neut # (Auto) Lymph # (Auto) [place] # (Auto) Eos # (Auto) Baso # (Auto) Nucleated RBC % (a uto) Nucleated RBCs # Sodium Potassium Chloride Carbon Dioxide Anion Gap BUN Creatinine GFR Calculation Glucose Calculated Osmolal ity Lactate 4.1 mmol/L H* mmo l/L (0.5-2.2) Calcium Magnesium Total Bilirubin AST ALT Alkaline Phosphata se Troponin T Gen 5 n g/L 48 ng/L H ng/L (0-10) Total Protein Albumin Globulin TSH Urine Color Urine Appearance Urine pH Ur Specific Gravit y Urine Protein Urine Glucose (UA) Urine Ketones Urine Blood Urine Nitrate Urine Bilirubin Urine Urobilinogen Ur Leukocyte Mary ase Urine RBC Urine WBC Ur Squamous Epith Cells Ur Transition Epit h Cell Amorphous Sediment Urine Bacteria Hyaline Casts Urine Mucus Discharge Plan Discharge Prescriptions: No Action hydrocodone-acetaminophen 10-325 mg tablet 1 tab PO Q8H PRN (Reason: Pain) RF: 0 valsartan 320 mg tablet 320 mg PO QAM RF: 0 spironolactone 25 mg tablet 12.5 mg PO QAM RF: 0 metoprolol succinate 100 mg tablet extended release 24 hr 100 mg PO QAM RF: 0 furosemide 40 mg tablet 20 mg PO QAM RF: 0 aspirin 81 mg tablet,delayed release (DR/EC) 81 mg PO QPM RF: 0 gabapentin 300 mg capsule 300 mg PO QPM RF: 0 nitroglycerin 0.4 mg tablet, sublingual 0.4 mg sublingual Q5M PRN (Reason: Chest Pain) RF: 0 simvastatin 40 mg tablet 40 mg PO BEDTIME RF: 0 cholecalciferol (vitamin D3) 25 mcg (1,000 unit) capsule 25 mcg PO BEDTIME RF: 0 calcium citrate-vitamin D3 [Citracal-D3 Petites] 200 mg-6.25 mcg (250 unit) tablet 1 tab PO BEDTIME RF: 0 Synthroid 88 mcg tablet 88 mcg PO QAM RF: 0 Eliquis 2.5 mg tablet 2.5 mg PO BID RF: 0 Coding Level of Care Code ED Labor Delivery Specialist for Chg Fwd Exam Comprehensive
[2021-07-26] MEDS: sodium chloride 0.9% 500 ML IV (16:30)
[2021-07-26] MEDS: magnesium sulfate premix 2 GM/50 ML PIGGYBACK IV (16:31)
[2021-07-26 17:48] LABS: Basophils % 0.4 %; Hematocrit 51.1 % (37.0-47.0); Hemoglobin 16.4 g/dL (11.5-15.3); Lymphocytes # 1.5 10^3/uL (0.8-4.8); Mean Corpuscular HGB Conc 32.1 g/dL (30.0-36.0); Mean Corpuscular Hemoglobin 31.5 pg (28.0-34.0); Mean Corpuscular Volume 98.1 fl (81-99); Mean Platelet Volume 12.5 fL (7.4-10.4); Monocytes # 1.3 10^3/uL (0.2-0.9); Monocytes % 13.6 %; Neutrophils # 6.38 10^3/uL (1.8-7.7); Neutrophils % 69.6 %; Nucleated Red Blood Cells % 0 %; Platelet Count 147 10^3/cmm (130-400); Red Blood Count 5.21 10^6/uL (4.1-5.3); Red Cell Distribution Width 18.3 % (12.1-15.1); White Blood Count 9.2 10^3/uL (4.0-10.0)
[2021-07-26 18:01] LABS: Add Urine Microscopic? YES; Bilirubin Urine Neg (Negative); Blood Urine 2+ (Negative); Glucose Urine UA Norm (Normal); Ketones Urine Negative (Negative); Leukocyte Esterase Urine 2+ (Negative); Nitrate Urine Negative (Negative); Protein Urine Neg (Negative); Specific Gravity, Urine 1.005 (1.005-1.030); Urine Appearance Hazy (CLEAR); Urine Color Yellow (Yellow); Urobilinogen Urine Norm (Negative); pH Urine 7 (5-7)
[2021-07-26 18:02] LABS: Lactate (Lactic Acid level) 4.1 mmol/L (0.5-2.2)
[2021-07-26 18:02] LABS: Add Urine Culture? Yes; Bacteria Urine 2+ /hpf; Mucus Urine 2+ /hpf; RBC Urine 0-4 /hpf (0-2); Transitional Epi Cells Urine 0-4 /hpf; WBC Urine 25-40 /hpf (0-5)
[2021-07-26 18:03] LABS: Troponin T (5th) Once 48 ng/L (0-10)
[2021-07-26 18:10] LABS: Alanine Aminotransferase 51 U/L (0-33); Alkaline Phosphatase 141 IU/L (35-105); Aspartate Amino Transferase 63 U/L (0-32); Blood Urea Nitrogen 62 mg/dL (8-23); Calcium 9.2 mg/dL (8.5-10.5); Carbon Dioxide 22 mmol/L (22-29); Chloride 95 mmol/L (98-107); Globulin 2.3 g/dL (1.3-4.6); Glucose 147 mg/dL (65-115); Magnesium 2.7 mg/dL (1.7-2.3); Osmolality Calculated 302 mOsm/kg (285-295); Sodium 136 mmol/L (136-145); Total Bilirubin 1.6 mg/dL (0.15-1.2); Total Protein 6.3 g/dL (6.6-8.7)
[2021-07-26 18:11] LABS: Anion Gap 24.8 (5-19); Potassium 5.8 mmol/L (3.5-5.1)
[2021-07-26] MEDS: lactated ringers 1,000 ML 999 ML IV (18:34)
[2021-07-26] MEDS: cefTRIAXone 1,000 MG in sodium chloride 0.9% (plus) 50 ML 100 MG IV (18:35)
--- NOTE | 2021-07-26 19:15 | P.HP_ITS ---
Providers/Chief Complaint Primary Care Provider: Alonzo Serrano MD Chief Complaint: HTN, BLE EDEMA; DELIRIUM, AFIB History of Present Illness Francia Azevedo is a 85 year old female with past medical history of coronary artery disease S/P Stent , hypertension , diabetes, A. fib, hypothyroidism, HFpEF, was brought in with chief complaint of progressive decline in overall general condition, worsening lethargy, worsening mentation. She was recently discharged from [facility] with a PICC line for possible UTI , on 2 weeks IV antibiotics. Which according to her daughter she completed the antibiotic course. According to her daughter her mother has progressively declined after the of her 3 months back. Prior to that she was more active, used to ambulate with a walker, mentation was also better. Upon arrival in the ER she was worked up for above-mentioned complaint: Pertinent imaging studies: CT head without contrast: No acute intracranial pathology X-ray chest: Bilateral pleural effusion with pulmonary vascular congestion. EKG:A.fib with RVR Pertinent labs: WBC:9.2, H&H;16/51, platelet count : 147, serum sodium 136, serum potassium 5.8 , BUN/SCR: 62/2.3, serum lactic acid:4.1, total bilirubin:1.6, AST:63, ALT:51, ALP: 141, Baseline troponin:48, proBNP: 48614, TSH : 54, Urinalysis; dirty rapid Covid negative. Review of Systems Const: Denies: fever(s), chills, body aches or diaphoresis Card: Denies: palpitations or orthopnea Resp: Denies: productive cough, wheezing or pain on inspiration GI: Denies: abdominal pain, nausea, vomiting, diarrhea or constipation : Denies: flank pain Musc: Denies: back pain or extremity pain Neuro: Denies: headache(s) or confusion Medications/Allergies Home Medications Medication Instructions Recorded Confirmed Last Taken Type aspirin 81 mg tablet,delayed 81 mg PO QPM 04/18/21 06/22/21 06/21/21 History release calcium citrate 200 mg 1 tab PO BEDTIME 04/18/21 06/22/21 06/21/21 History calcium-vitamin D3 6.25 mcg (250 unit) tablet cholecalciferol (vitamin D3) 25 25 mcg PO BEDTIME 04/18/21 06/22/21 06/21/21 History mcg (1,000 unit) capsule furosemide 40 mg tablet 20 mg PO QAM 04/18/21 06/22/21 06/22/21 07:00 History gabapentin 300 mg capsule 300 mg PO QPM 04/18/21 06/22/21 06/21/21 History hydrocodone 10 mg-acetaminophen 1 tab PO Q8H PRN 04/18/21 06/22/21 06/22/21 07:00 History 325 mg tablet metoprolol succinate 100 mg 100 mg PO QAM 04/18/21 06/22/21 06/22/21 07:00 History tablet,extended release 24 hr nitroglycerin 0.4 mg sublingual 0.4 mg SUBLINGUAL Q5M PRN 04/18/21 06/22/21 Unknown History tablet simvastatin 40 mg tablet 40 mg PO BEDTIME 04/18/21 06/22/21 06/21/21 History spironolactone 25 mg tablet 12.5 mg PO QAM 04/18/21 06/22/21 06/22/21 07:00 History valsartan 320 mg tablet 320 mg PO QAM 04/18/21 06/22/21 06/22/21 07:00 History apixaban [Eliquis] 2.5 mg PO BID 06/22/21 06/22/21 06/22/21 07:00 History levothyroxine [Synthroid] 88 mcg PO QAM 06/22/21 06/22/21 06/22/21 07:00 History Allergies Allergy/AdvReac Type Severity Reaction Status Date / Time ciprofloxacin [From Cipro] Allergy Unknown Verified 07/26/21 15:20 diltiazem Allergy ALGY-Rash Verified 07/26/21 15:20 sulfamethoxazole Allergy Unknown Verified 07/26/21 15:20 [From Bactrim] trimethoprim [From Bactrim] Allergy Unknown Verified 07/26/21 15:20 PFSH Acute PFSH: Medical History Atrial fibrillation CAD (coronary artery disease) CHF (congestive heart failure), NYHA class III HTN (hypertension) Hypothyroidism Surgical History History of coronary artery stent placement Hx of hysterectomy 1994 Family History Grandmother Stroke Father Cancer Other CHF (congestive heart failure) Denies family history of Diabetes Social History Smoking and tobacco status: never smoked Alcohol intake: never Vitals/I&O/Wt Last Vital Signs Temp 97.7 F 07/26/21 18:41 Pulse 102 H 07/26/21 18:41 Resp 16 07/26/21 18:41 BP 153/99 07/26/21 18:41 Pulse Ox 97 07/26/21 18:41 07/26/21 07/26/21 07/26/21 06:59 14:59 22:59 Intake Total 550 / 550 Balance 550 / 550 Weight last 48 hrs Weight 53.524 kg Physical Exam Const: COMMON NORMALS: patient oriented x3 HENMT: COMMON NORMALS: normocephalic and atraumatic HEAD & SCALP: normocephalic and atraumatic Resp: COMMON NORMALS: clear to auscultation bilaterally EFFORT & INSPECTION: Yes symmetric chest movement AUSCULTATION: clear to auscultation bilaterally Cardio: OTHER: Irregularly irregular rhythm, S1-S2 variable intensity, GI: COMMON NORMALS: Normal to inspection, nondistended, normoactive bowel sounds present, Soft to palpation, non-tender, No hepatosplenomegaly present and no masses AUSCULTATION: Yes normoactive bowel sounds PALPATION: Yes Soft to palpation and Yes No hepatosplenomegaly present RECTAL EXAM: deferred Extremity: COMMON NORMALS: no clubbing, cyanosis or edema and no pedal edema Neuro: COMMON NORMALS: patient oriented x3 Data : 07/26/21 17:22 07/26/21 17:22 Micro: Microbiology 07/26/21 17:10 Blood Culture - Preliminary Blood SPECIMEN COLLECTED 07/26/21 17:22 Blood Culture - Preliminary Blood SPECIMEN COLLECTED A&P Assessment and plan (1) Sepsis: Sepsis 2/2 UTI : Patient meets sepsis criteria: Tachycardia , elevated lactic acid , UTI, encephalopathy . Blood culture Urine culture Lactic acid Procalcitonin MRSA PCR Vancomycin Zosyn IV hydration: Patient has received 500 cc bolus in the ER, currently on Ringer's lactate 100 cc an hour Status: Acute Qualifiers: Sepsis acute organ dysfunction status: without acute organ dysfunction Sepsis type: sepsis due to unspecified organism Qualified Code(s): A41.9 - Sepsis, unspecified organism (2) JENNA (acute kidney injury): CKD stage III versus JENNA on CKD stage III Admission serum creatinine: 2.3 Baseline serum creatinine currently unknown Urine electrolyte Monitor BMP Gentle IV hydration Renal ultrasound Intake output charting Avoid nephrotoxic Status: Acute (3) Hypothyroidism: TSH:54 Complete thyroid panel Continue levothyroxine 88 mcg po daily Status: Acute (4) Atrial fibrillation and flutter: Metoprolol succinate 100 mg p.o. daily Eliquis 2.5 mg every 12 hours daily Telemetry Status: Acute (5) Heart failure with preserved ejection fraction: HFpEF Currently compensated Monitor and output charting Daily weight Status: Acute (6) Transaminitis: No right upper quadrant tenderness. Denies any nausea vomiting. Possible ultrasound abdomen Monitor CMP Status: Acute (7) Hyperkalemia: Has received hyperkalemia cocktail Monitor BMP Status: Acute (8) UTI (urinary tract infection): Status: Acute (9) CAD (coronary artery disease): Status: Acute Qualifiers: Associated angina: without angina Coronary Disease-Associated Artery/Lesion type: [place] artery [place] vs. transplanted heart: [place] heart Qualified Code(s): I25.10 - Atherosclerotic heart disease of [place] coronary artery without angina pectoris (10) HTN (hypertension): Status: Acute Qualifiers: Hypertension type: essential hypertension Qualified Code(s): I10 - Essential (primary) hypertension (11) Generalized weakness: Status: Acute Additional A&P Information CODE STATUS:AND DVT prophylaxis: Attestations Medical Necessity Statement*: Patient needs to be hospital for management of sepsis. Anticipated length of stay greater than 2 midnights Coding Level of Care Code Acute Music Producer for [facility] Fwd Exam Detailed Diagnoses Sepsis A41.9 Sepsis acute organ dysfunction status: without acute organ dysfunction Sepsis type: sepsis due to unspecified organism JENNA (acute kidney injury) N17.9 Hypothyroidism E03.9 Atrial fibrillation and flutter I48.91; I48.92 Heart failure with preserved ejection fraction I50.30 Transaminitis R74.01 Hyperkalemia E87.5 UTI (urinary tract infection) N39.0 CAD (coronary artery disease) I25.10 Associated angina: without angina Coronary Disease-Associated Artery/Lesion type: [place] artery [place] vs. transplanted heart: [place] heart HTN (hypertension) I10 Hypertension type: essential hypertension Generalized weakness R53.1
[2021-07-26 19:41] LABS: SARS Covid-2 Antigen Negative (Negative)
[2021-07-26] MEDS: metoprolol succinate ER (24 HR) 100 mg Tablet PO (19:50)
[2021-07-26] MEDS: heparin 5,000 unit/mL INJ 1 mL 5000 UNIT SUBCUT (20:17)
[2021-07-26 22:01] LABS: Glucose Point of Care 137 mg/dL (70-110)
[2021-07-26] MEDS: cholecalciferol (vitamin D3) 1,000 unit Tablet 1000 UNIT PO (22:32)
[2021-07-26] MEDS: atorvastatin 40 mg Tablet 20 MG PO (22:32)
[2021-07-26] MEDS: sodium polystyrene sulfonate 15 gm/60 mL Btl PO (22:33)
[2021-07-26] MEDS: dextrose 50% syringe 50 mL 25 ML IVP (22:33)
[2021-07-26] MEDS: insulin regular-human 100 units/1 mL 5 UNIT IVP (22:34)
[2021-07-26] MEDS: vancomycin 500 MG in sodium chloride 0.9% (plus) 100 ML 100 MG IV (22:35)
[2021-07-26] MEDS: piperacillin-tazobactam 3.375 GM in sodium chloride 0.9% (plus) 50 ML IV (23:33)
[2021-07-27] VITALS (9 sets, daily range): BP systolic 74–139; BP diastolic 57–92; PULSE 71–149; RESP 15–24; TEMP 36.3–36.6; O2SAT 90–97
[2021-07-27 04:44] LABS: Glucose Point of Care 138 mg/dL (70-110)
[2021-07-27 05:18] LABS: Basophils % 0.4 %; Hematocrit 48.4 % (37.0-47.0); Hemoglobin 15.5 g/dL (11.5-15.3); Lymphocytes # 1.2 10^3/uL (0.8-4.8); Lymphocytes % 14.3 %; Mean Corpuscular Hemoglobin 31.6 pg (28.0-34.0); Mean Corpuscular Volume 98.6 fl (81-99); Monocytes % 12.4 %; Neutrophils # 5.98 10^3/uL (1.8-7.7); Neutrophils % 72.5 %; Nucleated Red Blood Cells % 0 %; Platelet Count 171 10^3/cmm (130-400); Red Blood Count 4.91 10^6/uL (4.1-5.3); White Blood Count 8.2 10^3/uL (4.0-10.0)
[2021-07-27 05:33] LABS: Lactic Sepsis W/Reflex 3.5 mmol/L (0.5-2.2)
[2021-07-27 05:47] LABS: Alanine Aminotransferase 50 U/L (0-33); Albumin Level 3.9 g/dL (3.5-5.2); Alkaline Phosphatase 140 IU/L (35-105); Aspartate Amino Transferase 58 U/L (0-32); Blood Urea Nitrogen 61 mg/dL (8-23); Carbon Dioxide 22 mmol/L (22-29); Chloride 94 mmol/L (98-107); Globulin 2.4 g/dL (1.3-4.6); Glucose 131 mg/dL (65-115); Magnesium 2.8 mg/dL (1.7-2.3); Osmolality Calculated 299 mOsm/kg (285-295); Sodium 135 mmol/L (136-145); Thyroid Stimulating Hormone 50.35 uIU/mL (0.27-4.20); Total Protein 6.3 g/dL (6.6-8.7)
[2021-07-27] MEDS: FUROsemide 40 mg Tablet 20 MG PO (05:47)
[2021-07-27] MEDS: levothyroxine 88 mcg Tablet PO (05:47)
[2021-07-27 05:49] LABS: Anion Gap 23.6 (5-19); Potassium 4.6 mmol/L (3.5-5.1)
[2021-07-27 05:51] LABS: Procalcitonin 0.23 ng/mL (0-0.5); Thyroid Stimulating Hormone 50.72 uIU/mL (0.27-4.20)
[2021-07-27 06:18] LABS: Free T4 Free Thyroxine 1.12 ng/dL (0.82-1.77)
[2021-07-27 06:25] LABS: Glucose Point of Care 131 mg/dL (70-110)
[2021-07-27 07:03] LABS: Reflex Lactate Order REFLEX LACTIC ORDERD
[2021-07-27] MEDS: apixaban 5 mg Tablet 2.5 MG PO ×2 (07:52→16:57)
--- NOTE | 2021-07-27 07:52 | PC.PHAR ---
pts daughter rhett verified pts medications-rhett states the pts gabapentin, spironolactone and norvasc was dced -rhett states the pt is still taking eliquis 2.5mg bid states they get from mail order-rhett states the pt finished the cefepime injection and the heparin lock inj on friday07/24/21-rhett states the pt has lorazepam but doesnt take states it makes her sleep to much-rhett states the pt no longer gets a prolia shot-notes are made in the pharmacy comments
[2021-07-27] MEDS: metoprolol succinate ER (24 HR) 100 mg Tablet PO (07:53)
[2021-07-27 08:40] LABS: Lactic Acid level (Lactate) 3.4 mmol/L (0.5-2.2)
--- NOTE | 2021-07-27 08:57 | PC.NURSE ---
Dr. Rodriguez notified at this time of lab results, telemetry, output and vital signs. No new orders at this time. Will continue to monitor and update with any changes.
--- NOTE | 2021-07-27 09:36 | PC.NURSE ---
Dr. Rodriguez notified of patients heart rate and telemetry. New orders received for metorprolol 5 mg IVP PRN Q4H for heart rate of 110 or greater.
[2021-07-27] MEDS: sodium chloride 0.9% 500 ML 100 ML IV (10:08)
[2021-07-27] MEDS: piperacillin-tazobactam 3.375 GM in sodium chloride 0.9% (plus) 50 ML IV (10:09)
[2021-07-27] MEDS: metoprolol tartrate 1 mg/1 mL SDV 5 mL 5 MG IVP ×2 (10:55→15:28)
[2021-07-27 11:57] LABS: Glucose Point of Care 126 mg/dL (70-110)
--- NOTE | 2021-07-27 13:42 | PC.NURSE ---
Removed Sales Catheter that patient had placed prior to admission and replaced with 16 [place] Sales Catheter
--- NOTE | 2021-07-27 14:27 | P.PN_ITS ---
Subjective Subjective: Interval history: Last evening patient went into afib with rvr for which she was placed on Cardizem drip as well received 10 mg cardizem bolus. Cardizem drip was stopped this morning.Currently heart rate is well controlled. Medications: Reviewed: Yes Vitals/I&O/Wt Last Vital Signs Temp 97.4 F L 07/27/21 12:00 Pulse 116 H 07/27/21 12:00 Resp 18 07/27/21 12:00 BP 120/79 07/27/21 12:00 Pulse Ox 94 07/27/21 12:00 07/26/21 07/27/21 07/27/21 22:59 06:59 14:59 Intake Total 600 / 600 350 / 950 170 / 170 Output Total 300 / 300 Balance 600 / 600 50 / 650 170 / 170 Weight last 48 hrs Weight 54.114 kg Weight 55.338 kg Weight 53.524 kg Physical Exam Const: COMMON NORMALS: patient oriented x3 HENMT: COMMON NORMALS: normocephalic and atraumatic HEAD & SCALP: normocephalic and atraumatic Resp: COMMON NORMALS: clear to auscultation bilaterally EFFORT & INSPECTION: Yes symmetric chest movement AUSCULTATION: clear to auscultation bilaterally Cardio: OTHER: Irregularly irregular rhythm, S1-S2 variable intensity, GI: COMMON NORMALS: Normal to inspection, nondistended, normoactive bowel sounds present, Soft to palpation, non-tender, No hepatosplenomegaly present and no masses AUSCULTATION: Yes normoactive bowel sounds PALPATION: Yes Soft to palpation and Yes No hepatosplenomegaly present RECTAL EXAM: deferred Extremity: COMMON NORMALS: no clubbing, cyanosis or edema and no pedal edema Neuro: COMMON NORMALS: patient oriented x3 Urinary Catheter Management^: Sales: Cath Placed During This Visit: yes Urinary Catheter Date of Insertion: 07/27/21 Urinary Catheter Time of Insertion: 13:36 Data : 07/28/21 07:04 07/28/21 07:04 Micro: Microbiology 07/27/21 04:11 MRSA Culture - Final Nose 07/26/21 17:10 Blood Culture - Preliminary Blood SPECIMEN COLLECTED 07/26/21 17:22 Blood Culture - Preliminary Blood SPECIMEN COLLECTED A&P Assessment and plan (1) Sepsis: Sepsis 2/2 UTI : Patient meets sepsis criteria: Tachycardia , elevated lac tic acid , UTI, encephalopathy . Blood culture:NTD Urine culture:GNR Lactic acid:4.1-->2.3 Procalcitonin: 0.23 MRSA PCR:Negative Initially on Vancomycin: Continue Zosyn Status: Acute Qualifiers: Sepsis acute organ dysfunction status: without acute organ dysfunction Sepsis type: sepsis due to unspecified organism Qualified Code(s): A41.9 - Sepsis, unspecified organism (2) JENNA (acute kidney injury): CKD stage III versus JENNA on CKD stage III Admission serum creatinine: 2.3 Baseline serum creatinine currently unknown Urine electrolyte Monitor BMP Gentle IV hydration Renal ultrasound Intake output charting Avoid nephrotoxic Status: Acute (3) Hypothyroidism: TSH:54, Repeat TSH : 50.7 Free T4: 1.12 Total T3: levothyroxine dose have been increased to 125 mcg po daily from 88 mcg po daily. She will need Repeat TFT in a month to adjust her levothyroxine dose. Status: Acute (4) Atrial fibrillation and flutter: 2D Echo : Normal LV Cavity size as well as normal LVEF, Grade III/IV diastolic dysfunction (restrictive filling pattern), severely elevated filling pressures.Mildly increased right ventricular size. Mildly decreased right ventricular systolic function. Severe pulmonary hypertension, RVSP 69 mmHg.Mild MR, Severe TR Metoprolol succinate 100 mg p.o. daily Eliquis 2.5 mg every 12 hours daily. Cardizem drip has been stopped. Telemetry Status: Acute (5) Heart failure with preserved ejection fraction: HFpEF Currently compensated Lasix 40 mg I.V Daily Monitor and output charting Daily weight Status: Acute (6) Severe pulmonary hypertension: PLan as above Status: Acute (7) Transaminitis: No right upper quadrant tenderness. Denies any nausea vomiting. Possible ultrasound abdomen Monitor CMP Status: Acute (8) UTI (urinary tract infection): Status: Acute (9) Hyperkalemia: Has received hyperkalemia cocktail Monitor BMP Status: Acute (10) CAD (coronary artery disease): Status: Acute Qualifiers: Associated angina: without angina Coronary Disease-Associated Artery/Lesion type: [place] artery [place] vs. transplanted heart: [place] heart Qualified Code(s): I25.10 - Atherosclerotic heart disease of [place] coronary artery without angina pectoris (11) HTN (hypertension): Status: Acute Qualifiers: Hypertension type: essential hypertension Qualified Code(s): I10 - Essential (primary) hypertension (12) Generalized weakness: Status: Acute Additional A&P Information #Hyper active delirium:Patient will need Pysch follow up. Will continue haldol prn as well as Ativan as needed. CODE STATUS:AND DVT prophylaxis: Attestations Medical Necessity Statement*: Patient needs to be in hospital for [facility] Coding Level of Care Code Acute Brim Raiser for [facility] Fwd Exam Detailed Diagnoses Sepsis A41.9 Sepsis acute organ dysfunction status: without acute organ dysfunction Sepsis type: sepsis due to unspecified organism JENNA (acute kidney injury) N17.9 Hypothyroidism E03.9 Atrial fibrillation and flutter I48.91; I48.92 Heart failure with preserved ejection fraction I50.30 Severe pulmonary hypertension I27.20 Transaminitis R74.01 UTI (urinary tract infection) N39.0 Hyperkalemia E87.5 CAD (coronary artery disease) I25.10 Associated angina: without angina Coronary Disease-Associated Artery/Lesion type: [place] artery [place] vs. transplanted heart: [place] heart HTN (hypertension) I10 Hypertension type: essential hypertension Generalized weakness R53.1
--- NOTE | 2021-07-27 14:41 | PC.CHAP ---
Pastoral Care Encounter/Spiritual Assessment Type of Contact [] Declined tape making machine operator visit [] Patient/Family/Request visit [] Outpatient visit [] Follow-up visit [] Physician referral [] Code/Alert [XX] Routine visit [] Staff referral [] Actively dying [] Patient sleeping [] Family support [] [] Out of room [] Palliative care [] [] Receiving care in room [] Pre-surgical visit [] Trauma [] Long length of stay [] ICU visit [] Other: Relational/Emotional Strength [xx] Patient feels connected with others/family/visitors/staff [] Distress [] Loneliness/isolation [] Abandonment Spirituality of Patient [] Person of Kelle [] Attends Latter Day of their Kelle [xx] Believes in Prayer [] Reads Bible or Anabaptist materials [] There are Spiritual issues to be addressed Travel Registered Nurse Nicu Interventions [xx] Prayer [xx] Active listening [xx] Non-anxious presence [] Spiritual/emotional support [] Crisis/trauma care [] Spiritual counseling [] Bereavement support [] Provided bereavement packet [] Provided Bible/devotional materials [] Provided toy/stuffed animal, coloring book to patient or family member [] Provided Communion [] Anointing/[place] [] Salvation [xx] Completed spiritual assessment [] Other: Impact on Illness or Injury [] Angry [] Fearful [] Anxious [] Often cries [] Exhaustion [] Unable to work [] Unable to attend restoration [] Unable to walk/stand [] Unable to read [] Unable to drive [] Unable to eat/drink [] Unable to sleep [] Unable to be with family [] Patient intubated [] Other: Summary Patient's daughter had just arrived and wants answers as to what is her mother's status now based on last night's tests and exams. Travel Registered Nurse Nicu was unable to give her these answers. A machine was beeping and showed low battery so daughter asked tape making machine operator to find nurse to take care of it. Travel Registered Nurse Nicu complied. Time spent with patient 4 minutes
[2021-07-27] MEDS: gabapentin 300 mg Capsule PO (16:57)
[2021-07-27] MEDS: aspirin 81 mg EC Tablet PO (16:57)
[2021-07-27 17:41] LABS: Glucose Point of Care 118 mg/dL (70-110)
--- NOTE | 2021-07-27 17:55 | ECG_ITS ---
[facility] Test Date: 2021-07-27 Pat Name: Francia Azevedo Department: Room: 251 Gender: Female Foot Gatherer: : 1935 Requested By: Hugo Rodriguez Order Number: [id number] Samantha MD: Shilo Solis M.D. Measurements Intervals [place] Rate: 128 P: ID: QRS: 83 QRSD: 102 T: 0 QT: 306 QTc: 447 Interpretive Statements ATRIAL FIBRILLATION WITH RAPID VENTRICULAR RESPONSE LOW QRS VOLTAGE IN EXTREMITY LEADS [QRS DEFLECTION < 0.5 mV IN LIMB LEADS] POSSIBLE ANTERIOR MYOCARDIAL INFARCTION , OF INDETERMINATE AGE [30 ms Q WAVE IN V3/V4, OR R < 0.2 mV IN V4] Compared to ECG 07/26/2021 15:52:40 Low QRS voltage now present Myocardial infarct finding now present Electronically Signed On 07-27-2021 21:04:53 CDT by Shilo Solis M.D. [id number] f
[2021-07-27 19:02] LABS: Basophils % 0.3 %; Eosinophils % 0.1 %; Hematocrit 50.2 % (37.0-47.0); Hemoglobin 15.6 g/dL (11.5-15.3); Lymphocytes # 1.2 10^3/uL (0.8-4.8); Lymphocytes % 15.6 %; Mean Corpuscular HGB Conc 31.1 g/dL (30.0-36.0); Mean Corpuscular Hemoglobin 30.8 pg (28.0-34.0); Mean Platelet Volume 11.6 fL (7.4-10.4); Monocytes # 0.9 10^3/uL (0.2-0.9); Monocytes % 11.4 %; Neutrophils # 5.43 10^3/uL (1.8-7.7); Neutrophils % 72.1 %; Nucleated Red Blood Cells % 0 %; Platelet Count 152 10^3/cmm (130-400); Red Blood Count 5.07 10^6/uL (4.1-5.3); Red Cell Distribution Width 18.3 % (12.1-15.1); White Blood Count 7.5 10^3/uL (4.0-10.0)
[2021-07-27 19:06] LABS: Troponin T (5th) Once 47 ng/L (0-10)
[2021-07-27 19:07] LABS: Albumin Level 3.6 g/dL (3.5-5.2); Alkaline Phosphatase 126 IU/L (35-105); Blood Urea Nitrogen 62 mg/dL (8-23); Calcium 8.6 mg/dL (8.5-10.5); Carbon Dioxide 21 mmol/L (22-29); Chloride 95 mmol/L (98-107); Globulin 2.4 g/dL (1.3-4.6); Glucose 150 mg/dL (65-115); Magnesium 2.8 mg/dL (1.7-2.3); Osmolality Calculated 302 mOsm/kg (285-295); Sodium 136 mmol/L (136-145); Total Bilirubin 1.7 mg/dL (0.15-1.2)
[2021-07-27 19:09] LABS: Anion Gap 25.2 (5-19); Potassium 5.2 mmol/L (3.5-5.1)
[2021-07-27 19:10] LABS: Alanine Aminotransferase 53 U/L (0-33); Aspartate Amino Transferase 68 U/L (0-32)
[2021-07-27 21:12] LABS: Glucose Point of Care 140 mg/dL (70-110)
[2021-07-27] MEDS: LORazepam 2 mg/mL INJ 1 mL 1 MG IVP (21:16)
[2021-07-27] MEDS: cholecalciferol (vitamin D3) 1,000 unit Tablet 1000 UNIT PO (21:16)
[2021-07-27] MEDS: atorvastatin 40 mg Tablet 20 MG PO (21:16)
[2021-07-28] VITALS (7 sets, daily range): BP systolic 115–124; BP diastolic 60–88; PULSE 66–105; RESP 17–22; TEMP 37; O2SAT 95–100
--- NOTE | 2021-07-28 02:35 | PC.NURSE ---
patient has been continuously rolling in bed pulling her case monitor off, IVs out, and blood pressure cuff off, she tries to place her self side ways in the bed with her legs hanging over the rails, repositioning patient about every fifteen minutes this shift, have padded the rails to protect her legs and feet.
[2021-07-28 06:41] LABS: Glucose Point of Care 153 mg/dL (70-110)
[2021-07-28] MEDS: levothyroxine 125 mcg Tablet PO (06:41)
[2021-07-28] MEDS: FUROsemide 40 mg Tablet PO (06:41)
[2021-07-28] MEDS: losartan 50 mg Tablet PO (06:41)
[2021-07-28 07:15] LABS: Basophils % 0.3 %; Eosinophils % 0.1 %; Hematocrit 46.4 % (37.0-47.0); Hemoglobin 14.9 g/dL (11.5-15.3); Lymphocytes % 11.6 %; Mean Corpuscular HGB Conc 32.1 g/dL (30.0-36.0); Mean Corpuscular Hemoglobin 31.7 pg (28.0-34.0); Mean Corpuscular Volume 98.7 fl (81-99); Mean Platelet Volume 11.7 fL (7.4-10.4); Monocytes # 1.1 10^3/uL (0.2-0.9); Monocytes % 12.9 %; Neutrophils # 6.45 10^3/uL (1.8-7.7); Neutrophils % 74.5 %; Nucleated Red Blood Cells % 0 %; Platelet Count 165 10^3/cmm (130-400); Red Cell Distribution Width 17.9 % (12.1-15.1); White Blood Count 8.7 10^3/uL (4.0-10.0)
[2021-07-28 07:35] LABS: Lactate (Lactic Acid level) 2.3 mmol/L (0.5-2.2)
[2021-07-28 07:43] LABS: Alanine Aminotransferase 46 U/L (0-33); Albumin Level 3.5 g/dL (3.5-5.2); Alkaline Phosphatase 110 IU/L (35-105); Anion Gap 21.7 (5-19); Aspartate Amino Transferase 48 U/L (0-32); Blood Urea Nitrogen 66 mg/dL (8-23); Calcium 8.8 mg/dL (8.5-10.5); Carbon Dioxide 24 mmol/L (22-29); Chloride 98 mmol/L (98-107); Glucose 167 mg/dL (65-115); Osmolality Calculated 311 mOsm/kg (285-295); Potassium 4.7 mmol/L (3.5-5.1); Sodium 139 mmol/L (136-145); Total Bilirubin 1.7 mg/dL (0.15-1.2); Total Protein 5.5 g/dL (6.6-8.7)
[2021-07-28] MEDS: metoprolol succinate ER (24 HR) 100 mg Tablet PO (08:00)
[2021-07-28] MEDS: apixaban 5 mg Tablet 2.5 MG PO ×2 (08:00→17:50)
[2021-07-28] MEDS: HYDROcodone-acetaminophen 10-325 mg Tablet 1 TAB PO (09:04)
--- NOTE | 2021-07-28 10:33 | PM.PN ---
Subjective Subjective: Interval history: Cardizem drip was stopped this morning.Currently heart rate is well controlled. Patient continue to have intermittent hyperactive delirum Medications: Reviewed: Yes Vitals/I&O/Wt Last Vital Signs Temp 98.6 F 07/28/21 23:24 Pulse 122 H 07/29/21 07:30 Resp 25 H 07/29/21 07:30 BP 129/94 07/29/21 07:30 Pulse Ox 2 L 07/29/21 07:30 07/28/21 07/29/21 07/29/21 22:59 06:59 14:59 Intake Total 339.417 / 655.000 150 / 805.000 Output Total 650 / 650 Balance 339.417 / 655.000 -500 / 155.000 Weight last 48 hrs Weight 55.384 kg Weight 49.895 kg Physical Exam Const: COMMON NORMALS: patient oriented x3 HENMT: COMMON NORMALS: normocephalic and atraumatic HEAD & SCALP: normocephalic and atraumatic Resp: COMMON NORMALS: clear to auscultation bilaterally EFFORT & INSPECTION: Yes symmetric chest movement AUSCULTATION: clear to auscultation bilaterally Cardio: OTHER: Irregularly irregular rhythm, S1-S2 variable intensity, GI: COMMON NORMALS: Normal to inspection, nondistended, normoactive bowel sounds present, Soft to palpation, non-tender, No hepatosplenomegaly present and no masses AUSCULTATION: Yes normoactive bowel sounds PALPATION: Yes Soft to palpation and Yes No hepatosplenomegaly present RECTAL EXAM: deferred Extremity: COMMON NORMALS: no clubbing, cyanosis or edema and no pedal edema Neuro: COMMON NORMALS: patient oriented x3 Urinary Catheter Management^: Sales: Cath Placed During This Visit: yes Reason for Continuing Indwelling Catheter: Accurate Measurement of Urinary Output in Critically Ill Patients Urinary Catheter Date of Insertion: 07/27/21 Urinary Catheter Time of Insertion: 13:36 Data : 07/29/21 04:00 07/29/21 04:00 Micro: Microbiology 07/26/21 17:03 Urine Culture - Final Urine,Clean Catch Pseudomonas aeruginosa A&P Assessment and plan (1) Sepsis: Sepsis 2/2 UTI : Patient meets sepsis criteria: Tachycardia , elevated lactic acid , UTI, encephalopathy . Blood culture:NTD Urine culture:GNR Lactic acid:4.1-->2.3 Procalcitonin: 0.23 MRSA PCR:Negative Initially on Vancomycin: Continue Zosyn Status: Acute Qualifiers: Sepsis acute organ dysfunction status: without acute organ dysfunction Sepsis type: sepsis due to unspecified organism Qualified Code(s): A41.9 - Sepsis, unspecified organism (2) JENNA (acute kidney injury): CKD stage III versus JENNA on CKD stage III Admission serum creatinine: 2.3 Baseline serum creatinine currently unknown Urine electrolyte Monitor BMP Gentle IV hydration Renal ultrasound Intake output charting Avoid nephrotoxic Status: Acute (3) Hypothyroidism: TSH:54, Repeat TSH : 50.7 Free T4: 1.12 Total T3: levothyroxine dose have been increased to 125 mcg po daily from 88 mcg po daily. She will need Repeat TFT in a month to adjust her levothyroxine dose. Status: Acute (4) Atrial fibrillation and flutter: 2D Echo : Normal LV Cavity size as well as normal LVEF, Grade III/IV diastolic dysfunction (restrictive filling pattern), severely elevated filling pressures.Mildly increased right ventricular size. Mildly decreased right ventricular systolic function. Severe pulmonary hypertension, RVSP 69 mmHg.Mild MR, Severe TR Metoprolol succinate 100 mg p.o. daily Eliquis 2.5 mg every 12 hours daily. Cardizem drip has been stopped. Telemetry Status: Acute (5) Heart failure with preserved ejection fraction: HFpEF Currently compensated Lasix 40 mg I.V Daily Monitor and output charting Daily weight Status: Acute (6) Severe pulmonary hypertension: PLan as above Status: Acute (7) Transaminitis: No right upper quadrant tenderness. Denies any nausea vomiting. Possible ultrasound abdomen Monitor CMP Status: Acute (8) UTI (urinary tract infection): Status: Acute (9) Hyperkalemia: Has received hyperkalemia cocktail Monitor BMP Status: Acute (10) CAD (coronary artery disease): Status: Acute Qualifiers: Coronary Disease-Associated Artery/Lesion type: [place] artery [place] vs. transplanted heart: [place] heart Associated angina: without angina Qualified Code(s): I25.10 - Atherosclerotic heart disease of [place] coronary artery without angina pectoris (11) HTN (hypertension): Status: Acute Qualifiers: Hypertension type: essential hypertension Qualified Code(s): I10 - Essential (primary) hypertension (12) Generalized weakness: Status: Acute Additional A&P Information #Hyper active delirium:Patient will need Pysch follow up. Will continue haldol prn as well as Ativan as needed. CODE STATUS:AND DVT prophylaxis: Attestations Medical Necessity Statement*: Patient needs to be in hospital for the management of sepsis. Coding Level of Care Code Acute Mail Room Clerk for Chg Fwd Diagnoses Sepsis A41.9 Sepsis acute organ dysfunction status: without acute organ dysfunction Sepsis type: sepsis due to unspecified organism JENNA (acute kidney injury) N17.9 Hypothyroidism E03.9 Atrial fibrillation and flutter I48.91; I48.92 Heart failure with preserved ejection fraction I50.30 Severe pulmonary hypertension I27.20 Transaminitis R74.01 UTI (urinary tract infection) N39.0 Hyperkalemia E87.5 CAD (coronary artery disease) I25.10 Coronary Disease-Associated Artery/Lesion type: [place] artery [place] vs. transplanted heart: [place] heart Associated angina: without angina HTN (hypertension) I10 Hypertension type: essential hypertension Generalized weakness R53.1
[2021-07-28 11:14] LABS: Glucose Point of Care 100 mg/dL (70-110)
[2021-07-28 11:14] LABS: Glucose Point of Care 144 mg/dL (70-110)
[2021-07-28] MEDS: piperacillin-tazobactam 3.375 GM in sodium chloride 0.9% (plus) 50 ML IV ×2 (11:28→22:13)
[2021-07-28 17:01] LABS: Glucose Point of Care 119 mg/dL (70-110)
[2021-07-28] MEDS: gabapentin 300 mg Capsule PO (17:49)
[2021-07-28] MEDS: aspirin 81 mg EC Tablet PO (17:49)
[2021-07-28] MEDS: FUROsemide 10 mg/mL SDV 4mL 40 MG IVP (17:51)
--- NOTE | 2021-07-28 19:20 | USCV_ITS ---
Francia Azevedo Age: 85 Gender: F : 1935 Exam Date: 07/28/2021 09:53 Ordering Phys: Hugo Rodriguez MD Technologist: Maria Del Carmen Crews Exam Location: [facility] [place] Indication: sob BP: / HR: Rhythm: Sinus Technical Quality: Fair MEASUREMENTS (Male / Female) Normal Values 2D ECHO LV Diastolic Diameter PLAX 2.9 cm 4.2 - 5.9 / 3.9 - 5.3 cm LV Systolic Diameter PLAX 2.6 cm LV Chamber Size 3.4 cm IVS Diastolic Thickness 1.3 cm 0.6 - 1.0 / 0.6 - 0.9 cm IVS Systolic Thickness 1.3 cm LVPW Diastolic Thickness 0.8 cm 0.6 - 1.0 / 0.6 - 0.9 cm LVPW Systolic Thickness 1.1 cm RV Chamber Size 2.5 cm LVOT Diameter 1.9 cm LV Ejection Fraction 2D Teich 27.7 % LV Ejection Fraction MOD 2C 46.8 % LV Ejection Fraction 2C AL 46.5 % LA Diameter 3.5 cm LA Width 4.2 cm LA Height 7.4 cm RA Width 3.7 cm RA Height 6.7 cm Aorta at Sinotubular Diameter 2.2 cm M-MODE LV Diastolic Diameter MM 4.1 cm 4.2 - 5.9 / 3.9 - 5.3 cm LV Systolic Diameter MM 3.0 cm LV Ejection Fraction MM Teich 53.6 % IVS Diastolic Thickness MM 0.9 cm 0.6 - 1.0 / 0.6 - 0.9 cm IVS Systolic Thickness MM 1.3 cm LVPW Diastolic Thickness MM 1.1 cm 0.6 - 1.0 / 0.6 - 0.9 cm LVPW Systolic Thickness MM 1.2 cm RV Diastolic Diameter MM 2.0 cm Aortic Annulus Diameter 2.5 cm LA Ao Ratio MM 1.6 MV E Point Septal Separation 0.7 cm DOPPLER AV Peak Velocity 69.0 cm/s LVOT Peak Velocity 68.0 cm/s AV Area Cont Eq vti 2.5 cm squared AV Area Cont Eq pk 2.7 cm squared MV Area PHT 6.3 cm squared Mitral E to A Ratio 3.5 MV E' Velocity 63.5 cm/s Mitral E to MV E' Ratio 19.2 Mitral E to LV E' Lateral Ratio 19.2 Mitral E to LV E' Septal Ratio 19.5 TR Peak Velocity 340.3 cm/s TR Peak Gradient 46.3 mmHg TR Mean Velocity 275.6 cm/s TR Mean Gradient 32.2 mmHg TR Velocity Time Integral 119.4 cm TV Peak E Velocity 72.0 cm/s Right Atrial Pressure 8.0 mmHg Pulmonary Artery Systolic Pressu 54.3 mmHg PV Peak Velocity 41.0 cm/s RV Acceleration Time 0.1 s RV Ejection Time 0.3 s RV AcT/ET 0.2 FINDINGS Left Ventricle Normal left ventricular cavity size. Normal left ventricular systolic function.flattened septum in diastole consistent with right ventricle volume overload. . Grade III/IV diastolic dysfunction (restrictive filling pattern), severely elevated filling pressures. Right Ventricle Mildly increased right ventricular size. Mildly decreased right ventricular systolic function. Severe pulmonary hypertension, RVSP 69 mmHg. Right Atrium Moderately increased right atrial size. Left Atrium The left atrium is normal in size. Mitral Valve Moderately thickened mitral valve. No mitral valve stenosis. Mild mitral valve regurgitation. Aortic Valve Structurally normal aortic valve without significant sclerosis or stenosis. There is no aortic regurgitation. Tricuspid Valve Severe tricuspid valve regurgitation. Pulmonic Valve Structurally normal pulmonic valve without significant stenosis. There is no pulmonic regurgitation. Pericardium Normal pericardium without effusion. Aorta Normal ascending aorta dimension. CONCLUSIONS 1-Normal left ventricular cavity size. Normal left ventricular systolic function.flattened septum in diastole consistent with right ventricle volume overload. . Grade III/IV diastolic dysfunction (restrictive filling pattern), severely elevated filling pressures. 2-Mildly increased right ventricular size. Mildly decreased right ventricular systolic function. Severe pulmonary hypertension, RVSP 69 mmHg. 3-Moderately thickened mitral valve. No mitral valve stenosis. Mild mitral valve regurgitation. 4-Moderately increased right atrial size. 5-Severe tricuspid valve regurgitation. 6-Right atrial pressure is around 15mm of mercury. 7-When compared to the prior echocardiogram dated December 30, 2012 there is worsening of pulmonary hypertension from mild to severe now there is mildly enlarged right ventricle with mildly reduced right ventricle function, there is worsening of tricuspid valve regurgitation from mild to severe now. Sorin Lechuga MD (Electronically Signed) Final Date: 28 July 2021 13:43 S
--- NOTE | 2021-07-28 19:55 | PC.NURSE ---
pt only alert to self this shift.up to chair 3 times this shift for meals.at times pt very restless,writhing in bed..removing cardiac leads and clothes..attemted to pull out iv,o2, and maya.thenat times sat with eyes open,peaceful..and answering questions fairly appropriatly.
[2021-07-28 20:05] LABS: Glucose Point of Care 158 mg/dL (70-110)
[2021-07-28] MEDS: atorvastatin 40 mg Tablet 20 MG PO (20:13)
[2021-07-28] MEDS: cholecalciferol (vitamin D3) 1,000 unit Tablet 1000 UNIT PO (20:13)
[2021-07-29] VITALS (8 sets, daily range): BP systolic 112–133; BP diastolic 63–101; PULSE 78–122; RESP 12–25; TEMP 36.6; O2SAT 2–98
[2021-07-29 04:19] LABS: Basophils % 0.4 %; Eosinophils # 0.2 10^3/uL (0.0-0.8); Eosinophils % 3.1 %; Hematocrit 42.7 % (37.0-47.0); Hemoglobin 13.5 g/dL (11.5-15.3); Lymphocytes # 0.9 10^3/uL (0.8-4.8); Lymphocytes % 13.1 %; Mean Corpuscular HGB Conc 31.6 g/dL (30.0-36.0); Mean Corpuscular Hemoglobin 31.5 pg (28.0-34.0); Mean Corpuscular Volume 99.8 fl (81-99); Mean Platelet Volume 11.7 fL (7.4-10.4); Monocytes % 13.8 %; Neutrophils # 4.96 10^3/uL (1.8-7.7); Nucleated Red Blood Cells % 0 %; Platelet Count 145 10^3/cmm (130-400); Red Blood Count 4.28 10^6/uL (4.1-5.3); Red Cell Distribution Width 17.8 % (12.1-15.1); White Blood Count 7.2 10^3/uL (4.0-10.0)
[2021-07-29] MEDS: levothyroxine 125 mcg Tablet PO (04:38)
[2021-07-29] MEDS: losartan 50 mg Tablet PO (04:38)
[2021-07-29 05:06] LABS: Alanine Aminotransferase 38 U/L (0-33); Albumin Level 3.1 g/dL (3.5-5.2); Alkaline Phosphatase 96 IU/L (35-105); Anion Gap 15.7 (5-19); Aspartate Amino Transferase 40 U/L (0-32); Blood Urea Nitrogen 68 mg/dL (8-23); Calcium 8.5 mg/dL (8.5-10.5); Carbon Dioxide 29 mmol/L (22-29); Chloride 101 mmol/L (98-107); Globulin 2.2 g/dL (1.3-4.6); Glucose 89 mg/dL (65-115); Osmolality Calculated 313 mOsm/kg (285-295); Potassium 3.7 mmol/L (3.5-5.1); Sodium 142 mmol/L (136-145); Thyroid Stimulating Hormone 29.81 uIU/mL (0.27-4.20); Total Bilirubin 1.1 mg/dL (0.15-1.2); Total Protein 5.3 g/dL (6.6-8.7)
[2021-07-29 06:37] LABS: Glucose Point of Care 98 mg/dL (70-110)
[2021-07-29] MEDS: apixaban 5 mg Tablet 2.5 MG PO (07:28)
[2021-07-29] MEDS: metoprolol succinate ER (24 HR) 100 mg Tablet PO (07:29)
--- NOTE | 2021-07-29 09:34 | PC.SOCIAL ---
IMM Update Pg. 2 of IMM updated. Initialed, dated, and timed. Placed in chart and copy provided to patient.
[2021-07-29] MEDS: piperacillin-tazobactam 3.375 GM in sodium chloride 0.9% (plus) 50 ML IV (10:11)
[2021-07-29] MEDS: HYDROcodone-acetaminophen 10-325 mg Tablet 1 TAB PO (10:11)
[2021-07-29 11:39] LABS: Glucose Point of Care 161 mg/dL (70-110)
[2021-07-29] MEDS: FUROsemide 20 mg Tablet 40 MG PO (11:41)
--- NOTE | 2021-07-29 14:28 | P.DS_ITS ---
Discharge Providers Date of Admission: 07/26/21 18:35 Date of Discharge: July 29, 2021 Attending Provider at Admission: Hugo Rodriguez MD Attending Provider at Discharge: Hugo Rodriguez MD Primary Care Provider: Alonzo Serrano MD Diagnoses at Discharge Discharge Diagnosis (1) Sepsis: Qualifiers: Sepsis acute organ dysfunction status: without acute organ dysfunction Sepsis type: sepsis due to unspecified organism Qualified Code(s): A41.9 - Sepsis, unspecified organism (2) JENNA (acute kidney injury): (3) Hypothyroidism: (4) Atrial fibrillation and flutter: (5) Heart failure with preserved ejection fraction: (6) Severe pulmonary hypertension: Status: Acute (7) Transaminitis: Status: Resolved (8) UTI (urinary tract infection): (9) Hyperkalemia: Status: Resolved (10) CAD (coronary artery disease): Qualifiers: Associated angina: without angina Coronary Disease-Associated Artery/Lesion type: [place] artery [place] vs. transplanted heart: [place] heart Qualified Code(s): I25.10 - Atherosclerotic heart disease of [place] coronary artery without angina pectoris (11) HTN (hypertension): Qualifiers: Hypertension type: essential hypertension Qualified Code(s): I10 - Essential (primary) hypertension (12) Generalized weakness: Reason for Visit Reason for Visit: HTN, BLE EDEMA; DELIRIUM, AFIB Hospital Course Hospital Course Francia Azevedo is a 85 year old female with past medical history of coronary artery disease S/P Stent , hypertension , diabetes, A. fib, hypothyroidism, HFpEF, was brought in with chief complaint of progressive decline in overall general condition, worsening lethargy, worsening mentation. She was recently discharged from [facility] with a PICC line for possible UTI , on 2 weeks IV antibiotics. Which according to her daughter she completed the antibiotic course. According to her daughter her mother has progressively declined after the of her 3 months back. Prior to that she was more active, used to ambulate with a walker, mentation was also better. Upon arrival in the ER she was worked up for above-mentioned complaint: Pertinent imaging studies: CT head without contrast: No acute intracranial pathology X-ray chest: Bilateral pleural effusion with pulmonary vascular congestion..EKG:A.fib with RVR Pertinent labs: WBC:9.2, H&H;16/51, platelet count : 147, serum sodium 136, serum potassium 5.8 , BUN/SCR: 62/2.3, serum lactic acid:4.1, total bilirubin:1.6, AST:63, ALT:51, ALP: 141, Baseline troponin:48, proBNP: 22952, TSH : 54, Urinalysis; dirty.rapid Covid negative.She was admitted for the management of sepsis 2/2 UTI.she was kept on broad spectrum abxs, urine culture grew pseudomonas sensitive to levofloxacin.Blood cultures were negative. during the hospital stay she was also managed for a.fib with rvr,was on carter blocking agent.for hypothyroidism TSH was very high, with Normal free t4,without any signs and symptoms of mixedema coma,or overt hypothyroidism,her dose of po le vothroxine was slightly increased to 125 mcg po daily from 88 mcg po daily,with no use of I.V levothyroxine given her age.She will follow with repeat TFT in 2 weeks with her pcp for further dose adjustment. she was also managed for compensated Heart failure with preserved ejection fraction:was kept on diuresis and was euvolemic on discharge.2D ECho showed Normal left ventricular cavity size. Normal left ventricular systolic function.flattened septum in diastole consistent with right ventricle volume overload. . Grade III/IV diastolic dysfunction (restrictive filling pattern), severely elevated filling pressures. Mildly increased right ventricular size. Mildly decreased right ventricular systolic function. Severe pulmonary hypertension, RVSP 69 mmHg. Moderately thickened mitral valve. No mitral valve stenosis. Mild mitral valve regurgitation. Moderately increased right atrial size. Severe tricuspid valve regurgitation. Patient was also having Hyper active delirium:[facility]. She was continued on haldol prn as well as Ativan as needed. Patient responded well to the above medical management and is being discharged in stable condition to home. Physical Exam Const: COMMON NORMALS: patient oriented x3 HENMT: COMMON NORMALS: normocephalic and atraumatic HEAD & SCALP: normocephalic and atraumatic Resp: COMMON NORMALS: clear to auscultation bilaterally EFFORT & INSPECTION: Yes symmetric chest movement AUSCULTATION: clear to auscultation bilaterally Cardio: OTHER: Irregularly irregular rhythm, S1-S2 variable intensity, GI: COMMON NORMALS: Normal to inspection, nondistended, normoactive bowel sounds present, Soft to palpation, non-tender, No hepatosplenomegaly present and no masses AUSCULTATION: Yes normoactive bowel sounds PALPATION: Yes Soft to palpation and Yes No hepatosplenomegaly present RECTAL EXAM: deferred Extremity: COMMON NORMALS: no clubbing, cyanosis or edema and no pedal edema Neuro: COMMON NORMALS: patient oriented x3 Urinary Catheter Management^: Sales: Cath Placed During This Visit: yes Reason for Continuing Indwelling Catheter: Accurate Measurement of Urinary Output in Critically Ill Patients Urinary Catheter Date of Insertion: 07/27/21 Urinary Catheter Time of Insertion: 13:36 Discharge Data Data Completed and Pending: Completed Studies During Hospitalization Category Date Time Status CT head wo con* [id number] Urgent Cat Scan 07/26/21 15:33 Completed XR chest 1V marcia ble [id number] Urgent Exams 07/26/21 15:33 Completed CV. echo complete * [id number] Routine Ultrasound 07/28/21 19:20 Completed Pending at discharge Category Date Time Status Blood Culture Sta t Lab 07/26/21 17:10 Results T3 Total Routine Lab 07/29/21 04:00 Received T4, Thyroxine, To vicente Routine Lab 07/29/21 04:00 Received Labs from last 24 hours 07/29/21 07/29/21 07/29/21 11:19 06:33 04:00 WBC RBC Hgb Hct MCV MCH MCHC RDW Plt Count MPV Neut % (Auto) Lymph % (Auto) [place] % (Auto) Eos % (Auto) Baso % (Auto) Neut # (Auto) Lymph # (Auto) [place] # (Auto) Eos # (Auto) Baso # (Auto) Nucleated RBC % (a uto) Nucleated RBCs # Sodium Potassium Chloride Carbon Dioxide Anion Gap BUN Creatinine GFR Calculation Glucose POC Glucose 161 H 98 Calculated Osmolal ity Calcium Total Bilirubin AST ALT Alkaline Phosphata se Total Protein Albumin Globulin TSH Thyroxine (T4) Pending Total T3 07/29/21 07/29/21 07/29/21 04:00 04:00 04:00 WBC 7.2 RBC 4.28 Hgb 13.5 Hct 42.7 MCV 99.8 H MCH 31.5 MCHC 31.6 RDW 17.8 H Plt Count 145 MPV 11.7 H Neut % (Auto) 69.0 Lymph % (Auto) 13.1 [place] % (Auto) 13.8 Eos % (Auto) 3.1 Baso % (Auto) 0.4 Neut # (Auto) 4.96 Lymph # (Auto) 0.9 [place]cer # (Auto) 1.0 H Eos # (Auto) 0.2 Baso # (Auto) 0.0 Nucleated RBC % (a uto) 0 Nucleated RBCs # 0.0 Sodium 142 Potassium 3.7 Chloride 101 Carbon Dioxide 29 Anion Gap 15.7 BUN 68 H Creatinine 2.4 H GFR Calculation Not Reportable Glucose 89 POC Glucose Calculated Osmolal ity 313 H Calcium 8.5 Total Bilirubin 1.1 AST 40 H ALT 38 H Alkaline Phosphata se 96 Total Protein 5.3 L Albumin 3.1 L Globulin 2.2 TSH 29.81 H Thyroxine (T4) Total T3 Pending 07/28/21 07/28/21 19:59 16:57 WBC RBC Hgb Hct MCV MCH MCHC RDW Plt Count MPV Neut % (Auto) Lymph % (Auto) [place] % (Auto) Eos % (Auto) Baso % (Auto) Neut # (Auto) Lymph # (Auto) [place] # (Auto) Eos # (Auto) Baso # (Auto) Nucleated RBC % (a uto) Nucleated RBCs # Sodium Potassium Chloride Carbon Dioxide Anion Gap BUN Creatinine GFR Calculation Glucose POC Glucose 158 H 119 H Calculated Osmolal ity Calcium Total Bilirubin AST ALT Alkaline Phosphata se Total Protein Albumin Globulin TSH Thyroxine (T4) Total T3 Vitals: Last Vital Signs Temp 97.8 F 07/29/21 12:00 Pulse 113 H 07/29/21 12:00 Resp 20 H 07/29/21 12:00 BP 133/101 07/29/21 12:00 Pulse Ox 92 07/29/21 12:00 Discharge Plan Discharge Patient Disposition: Home Condition: Stable Prescriptions: New levofloxacin 500 mg tablet 500 mg PO Q48H 7 Days Qty: 4 RF: 0 Continued hydrocodone-acetaminophen 10-325 mg tablet 1 tab PO Q8H PRN (Reason: Pain) RF: 0 valsartan 320 mg tablet 320 mg PO QAM RF: 0 metoprolol succinate 100 mg tablet extended release 24 hr 100 mg PO QAM RF: 0 furosemide 40 mg tablet See Rx Instructions .ROUTE .COMPLEX RF: 0 aspirin 81 mg tablet,delayed release (DR/EC) 81 mg PO QPM RF: 0 nitroglycerin 0.4 mg tablet, sublingual 0.4 mg sublingual Q5M PRN (Reason: Chest Pain) RF: 0 simvastatin 40 mg tablet 40 mg PO BEDTIME RF: 0 cholecalciferol (vitamin D3) 25 mcg (1,000 unit) capsule 25 mcg PO DAILY@14 RF: 0 Eliquis 2.5 mg tablet 2.5 mg PO BID RF: 0 potassium chloride 10 mEq capsule, extended release 10 meq PO BID RF: 0 lactulose 10 gram/15 mL solution 15 ml PO DAILY PRN (Reason: Constipation) RF: 0 Cranberry Chew 1 tab PO DAILY RF: 0 calcium 1 tab PO BEDTIME RF: 0 lorazepam 0.5 mg tablet 0.5 mg PO BID PRN (Reason: Anxiety) 14 Days Qty: 28 RF: 0 Changed Synthroid 88 mcg tablet 125 mcg PO QAM 15 Days Qty: 15 RF: 0 Discharge Orders: Discharge Order (Routine); Ordered 07/29/21 Ordered By: Hugo Rodriguez Other Ambulatory Orders: Free T4 Free Thyroxine (Routine) Timeframe: 2 Days Facility: [facility] - Location: Lab - Main Lab Ordered By: Hugo Rodriguez Thyroid Stimulating Hormone (Routine) Timeframe: 2 Weeks Facility: [facility] - Location: Lab - Main Lab Ordered By: Hugo Rodriguez Referrals: [facility] [Outside] Alonzo Serrano MD [Primary Care Provider] - 2 weeks ([facility] will contact you to schedule an follow-up appointment in 7 to 10 days. If you haven't heard from them by Friday. Please call ) Discharge Diet: Cardiac Discharge Activity: Increase activity as tolerated Patient Instructions: Lorazepam (By mouth), Levofloxacin (By mouth), Heart Failure (DC), A-fib (Atrial Fibrillation) (DC), Acute Kidney Injury (DC), Urinary Tract Infection in Women (ED), Sepsis (GEN), CHF Stoplight, Opioid Safety Discharge Attestations Time Spent in Discharge Care*: less than 30 min Specific Discharge Activities: educating patient, educating and/or supporting family/caregiver, discussing with pcp/other providers, discussing with transplant case manager/social workers/dc planners, documenting/other paperwork and evaluating patient/reviewing data Status at Discharge: Cognitive status at discharge: cognitively intact , Behavioral status at discharge: cooperative , Functional status at discharge: other assisted ambulation Overall status at discharge: patient is progressing back to baseline Quality Metrics Clinical Quality Measures During this hospital stay, did patient experience: None Coding Level of Care Code Acute Chg FW DC note Diagnoses Sepsis A41.9 Sepsis acute organ dysfunction status: without acute organ dysfunction Sepsis type: sepsis due to unspecified organism JENNA (acute kidney injury) N17.9 Hypothyroidism E03.9 Atrial fibrillation and flutter I48.91; I48.92 Heart failure with preserved ejection fraction I50.30 Severe pulmonary hypertension I27.20 Transaminitis R74.01 UTI (urinary tract infection) N39.0 Hyperkalemia E87.5 CAD (coronary artery disease) I25.10 Associated angina: without angina Coronary Disease-Associated Artery/Lesion type: [place] artery [place] vs. transplanted heart: [place] heart HTN (hypertension) I10 Hypertension type: essential hypertension Generalized weakness R53.1
--- NOTE | 2021-07-29 17:44 | PC.NURSE ---
discharge instructions given and explained too daughter.she verb understanding of instructions.discharged via w/c to exit at 1730.daughter to drive pt home.
--- NOTE | 2021-07-30 10:07 | PC.SOCIAL ---
Was notified by Daughter Michelle that [facility] did not receive the Levofloxacin script and she indicates they did not get a printed script. Called [facility] and verified tis was the case therefore verbally called in medication Levofloxacin 500mg Q48 hrs for total of 4 doses. Pharmacist reread this back to confirm. Daughter is aware.
--- NOTE | 2021-07-30 11:28 | PC.SOCIAL ---
SHAHIDA called regarding potential allergy to Levaquin based on other allergies listed. This nurse called provider and he indicates since she received 4 days of IV abx Zosyn here she will not need to continue oral abx since he considers this an uncomplicated UTI. Called Daughter Michelle back and updated her. She was concerned about not having abx at home for a few days.Tried to get her in with DR Serrano since she is not scheduled to see him until the . Unable to get her in sooner since Dr Serrano works one day a week and is booked up this . HUMAN RESOURCES REPRESENTATIVE is out of office with [facility]. Relayed this information to Michelle. Confirmed patient is not having any burning or pain upon urination. Has been afebrile and no N/V. Advised if she starts feeling worse or developing any of these symptoms prior to follow up appt to return to ED or be seen at [facility]. Michelle verbalized understanding.
[2021-07-30 12:07] LABS: T4 Total 3.9 mcg/dL (5.1-11.9)
[2021-07-30 12:57] LABS: T3 Total 31 ng/dL (76-181)
== END 2021-07-29 17:30 | disposition home health service (06) | DRG 872 ==
LOC: ER 18:33 → MEDSURG 20:07 → CSU 07-27 19:39
PROVIDERS: Admitting Provider Internal Medicine; Emergency Provider Family Medicine; PCP Family Medicine; Visit Provider Internal Medicine
DX: A41.9 Sepsis, unspecified organism (principal); N17.9 Acute kidney failure, unspecified; I48.92 Unspecified atrial flutter; I50.32 Chronic diastolic (congestive) heart failure; N39.0 Urinary tract infection, site not specified; I48.20 Chronic atrial fibrillation, unspecified; I13.0 Hypertensive heart and chronic kidney disease with heart failure and stage 1 through stage 4 chronic kidney disease, or unspecified chronic kidney disease; I27.20 Pulmonary hypertension, unspecified; E87.5 Hyperkalemia; I25.10 Atherosclerotic heart disease of native coronary artery without angina pectoris; E03.9 Hypothyroidism, unspecified; B96.5 Pseudomonas (aeruginosa) (mallei) (pseudomallei) as the cause of diseases classified elsewhere; I36.1 Nonrheumatic tricuspid (valve) insufficiency; R74.01 Elevation of levels of liver transaminase levels; N18.30 Chronic kidney disease, stage 3 unspecified; Z20.822 Contact with and (suspected) exposure to COVID-19; Z95.5 Presence of coronary angioplasty implant and graft; Z79.01 Long term (current) use of anticoagulants
CPT/HCPCS: 36415; 36416; 51702; 70450; 71045; 80053; 81001; 82962; 83605; 83735; 83880; 84145; 84436; 84439; 84443; 84480; 84484; 85025; 87040; 87077; 87086; 87186; 87426; 87641; 93005; 93306; 96365; 96372; 96375; 99285; J0696; J1644; J1815; J1940; J2060; J2543; J3475; J3490; J7040

== ENCOUNTER 2021-07-31 15:30 | Outpatient (CLI) | payer MEDICARE, OTHER, SELFPAY ==
[2021-07-31 16:26] LABS: Anion Gap 17.8 (5-19); Blood Urea Nitrogen 58 mg/dL (8-23); Carbon Dioxide 32 mmol/L (22-29); Chloride 92 mmol/L (98-107); Glucose 181 mg/dL (65-115); Magnesium 2.2 mg/dL (1.7-2.3); Osmolality Calculated 309 mOsm/kg (285-295); Sodium 139 mmol/L (136-145); Uric Acid 8.5 mg/dL (2.4-5.7)
[2021-07-31 16:32] LABS: Potassium 2.8 mmol/L (3.5-5.1)
[2021-07-31 16:59] LABS: Add Urine Microscopic? YES; Bilirubin Urine Neg (Negative); Blood Urine 2+ (Negative); Glucose Urine UA Norm (Normal); Ketones Urine Negative (Negative); Leukocyte Esterase Urine Negative (Negative); Nitrate Urine Negative (Negative); Protein Urine Neg (Negative); Urine Appearance Clear (CLEAR); Urine Color Yellow (Yellow); Urobilinogen Urine Norm (Negative); pH Urine 7 (5-7)
[2021-07-31 17:00] LABS: Bacteria Urine TRACE /hpf; RBC Urine 0-4 /hpf (0-2); Squamous Epithelial Cell Urine 0-4 /hpf (0-5); WBC Urine 0-4 /hpf (0-5)
[2021-07-31 17:01] LABS: Add Urine Culture? No; Hyaline Casts Urine RARE /lpf
== END 2021-07-31 15:31 | disposition home or self-care (01) ==
PROVIDERS: PCP Family Medicine; Visit Provider Family Medicine
DX: N39.0 Urinary tract infection, site not specified (principal); I11.0 Hypertensive heart disease with heart failure; I48.91 Unspecified atrial fibrillation; B96.5 Pseudomonas (aeruginosa) (mallei) (pseudomallei) as the cause of diseases classified elsewhere; I50.40 Unspecified combined systolic (congestive) and diastolic (congestive) heart failure
CPT/HCPCS: 80048; 81001; 83735; 84550

== ENCOUNTER 2021-08-03 18:25 | Outpatient (CLI) | payer MEDICARE, OTHER, SELFPAY ==
[2021-08-03 19:07] LABS: Potassium 5.8 mmol/L (3.5-5.1)
== END 2021-08-03 18:26 | disposition home or self-care (01) ==
LOC: LAB 18:30
PROVIDERS: PCP Family Medicine; Visit Provider Family Medicine
DX: Z01.89 Encounter for other specified special examinations (principal)
CPT/HCPCS: 84132